=== PATIENT | male | born 1970 | race Caucasian/White ===

== ENCOUNTER 2021-02-28 10:01 | Emergency (ER) | payer MEDICARE, SELFPAY ==
[2021-02-28] VITALS (7 sets, daily range): BP systolic 111–135; BP diastolic 65–92; PULSE 51–76; RESP 10–22; TEMP 36.7–36.8; O2SAT 98–100; BMI 25.8
--- NOTE | ~2021-02-28 | XR_ITS ---
EXAMINATION: XR CHEST CLINICAL INFORMATION: Dizziness and chest pain COMPARISON: None TECHNIQUE: 2 views of the chest were obtained. FINDINGS: No significant abnormality is noted involving the heart, lungs, mediastinum, bony thorax or soft tissues. XR/XR chest 2V IMPRESSION: Unremarkable chest exam.
--- NOTE | ~2021-02-28 | CT_ITS ---
EXAMINATION: CT HEAD WITHOUT CONTRAST CLINICAL INFORMATION: Dizziness and chest pain. COMPARISON: None TECHNIQUE: Contiguous axial imaging was performed from the skull base to vertex without intravenous administration of contrast. This CT examination was performed using dose optimization techniques as appropriate, variously including the following: *Automated exposure control *Adjustment of mA and/or kV according to patient size (this includes techniques or standardized protocols for targeted exams where dose is matched to indication/reason for exam; i.e. extremities or head) *Use of iterative reconstruction technique DLP: 706 mGy-cm FINDINGS: There is no evidence of acute intracranial hemorrhage or territorial infarction. No abnormal mass effect or midline shift is seen. Black to white matter differentiation is well preserved. No extra-axial fluid collections are identified. The ventricles are normal in size. There is no abnormal attenuation within the brain parenchyma. The osseous structures and soft tissues are normal. The mastoid air cells and visualized portions of the paranasal sinuses are well aerated. CT/CT head/brain wo con IMPRESSION: No acute intracranial process seen.
--- NOTE | 2021-02-28 11:24 | ECG_ITS ---
Test Reason : CP Blood Pressure : / mmHG Vent. Rate : 063 BPM Atrial Rate : 063 BPM P-R Int : 152 ms QRS Dur : 094 ms QT Int : 394 ms P-R-T Axes : 070 043 032 degrees QTc Int : 403 ms Normal sinus rhythm Normal ECG No previous ECGs available Referred By: Juliet Kumar Electronically Signed By:Jovany Glass
--- NOTE | 2021-02-28 11:36 | PC.NURSE ---
Pt alert and oriented, skin pink and warm. Pt reports while working this morning he began having SOB and chest pain that radiates down left extremity. No c/o pain when pressure applied to chest. Pt reports B/P taken prior to arrival and was extremely elevated. B/P stable at this time. Sinus Hamzah on monitor.
[2021-02-28 11:44] LABS: MANUAL DIFF FLAG NO
[2021-02-28 11:49] LABS: Basophils Percent Auto 0.3 % (0-2); Eosinophils Absolute Auto 0.1 X10*3/uL (0.0-0.4); Eosinophils Percent Auto 1.1 % (0-4); Hematocrit 39.8 % (42-52); Hemoglobin 12.8 g/dl (14.0-18.0); Imm Gran Abs Auto 0.02 X10*3/uL (0.00-0.03); Imm Gran Pct Auto 0.3 % (0.0-0.4); Lymphocytes Absolute Auto 1.8 X10*3/uL (1.2-4.9); Lymphocytes Percent Auto 28.2 % (20-40); Mean Corpuscular HGB Conc 32.2 g/dl (31.0-36.0); Mean Platelet Volume 10.7 fL (9.4-12.4); Monocytes Absolute Auto 0.4 X10*3/uL (0.1-1.2); Monocytes Percent Auto 5.5 % (2-11); Neutrophils Absolute Auto 4.2 X10*3/uL (2.0-8.3); Neutrophils Percent Auto 64.6 % (45-73); Platelet Count 238 X10*3/uL (160-400); Red Blood Count 4.74 X10*6/uL (4.60-5.80); Red Cell Distribution Width 13.2 % (11.0-16.0); White Blood Count 6.5 X10*3/uL (4.8-10.8)
[2021-02-28 11:55] LABS: Partial Thromboplastin Time 35.4 SEC (24.1-38.0)
[2021-02-28 12:17] LABS: Alanine Aminotransferase 17 U/L (0-40); Albumin Level 4.2 g/dL (3.5-5.0); Alkaline Phosphatase 63 U/L (39-117); Anion Gap 13 (12-20); Aspartate Amino Transferase 18 U/L (5-37); B Type Natriuretic Peptide 18 pg/mL (<100); Bilirubin Total 0.3 mg/dL (0.0-1.0); Blood Urea Nitrogen 11 mg/dL (9-16); Calcium 9.1 mg/dL (8.4-10.2); Carbon Dioxide 27 mmol/L (22-29); Chloride 106 mmol/L (96-108); Creatinine Clr Calc Pharmacy 91.9; Estimated Glomerular Filt Rate > 60; Glucose Random 90 mg/dL (60-115); Magnesium 2.4 mg/dL (1.6-2.6); Sodium 142 mmol/L (135-145); Total Protein 6.6 g/dL (6.5-8.0); Troponin-I High Sensitivity < 3.5 ng/L (<3.5-35.0)
[2021-02-28] MEDS: 0.9 % Sodium Chloride 1,000 ML 999 ML IVCONT (12:21)
[2021-02-28 12:34] LABS: Glucose Urine UA NEG (NEG); Leukocyte Esterase Urine NEG (NEG); Nitrite Urine NEG (NEG); Urine Blood NEG (NEG); Urine Ketones NEG (NEG); Urine Protein NEG (NEG-TRACE)
[2021-02-28 12:35] LABS: Appearance Urine CLEAR; Color Urine YELLOW
[2021-02-28 12:39] LABS: Influenza A PCR NEGATIVE (Negative); Influenza B PCR NEGATIVE (Negative); Resp Syncy Virus RNA Qual PCR NEGATIVE (Negative); SARS COV2 PCR INHOUSE NEGATIVE (Negative)
--- NOTE | 2021-02-28 13:03 | ED_ITS ---
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 He reports when he felt this pain his coworkers that are SPLITTER TENDER/nurse's checked his blood pressure and told him it was high although patient unsure what the actual number was. He reports that the symptoms lasted only a few minutes. He reports his symptoms are completely resolved at this time. He reports he has never had this in the past. Patient denies any dizziness, blurry vision/changes in vision, chest pain, paresthesias or any other symptoms at this time. Denies any headaches, nausea/vomiting, palpitations, dyspnea on exertion, orthopnea, abdominal pain, back pain, black or bloody stools, dysuria, hematuria or lower extremity edema. 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) Pain location: substernal Pain radiation: left arm Severity: moderate Quality: aching Relieving factors: nothing Exacerbating factors: nothing Associated symptoms: other (Dizziness and blurry vision) Treatment prior to arrival: none Risk Factors Coronary artery disease risk factors: none Thoracic aortic dissection risk factors: none Related Data Allergies Allergy/AdvReac Type Severity Reaction Status Date / Time No Known Allergies Allergy Verified 02/28/21 11:23 Review of Systems Review of Systems: Constitutional : No Fever, No Chills, No Night Sweats, No Fatigue, No Malaise ENT/Mouth : No Ear Pain, No Nasal Congestion, No Sinus Pain, No sore throat, No Rhinorrhea Eyes: + blurry vision resolved, No Eye Pain, No Swelling, No Redness, No Foreign Body, No Discharge Cardiovascular : + Chest Pain resolved, No SOB, No Dyspnea on Exertion, No Or thopnea, No Palpitations Respiratory : No Cough, No Sputum, No Wheezing, No Dyspnea Gastrointestinal : No Nausea, No Vomiting, No Diarrhea, No Constipation, No abdominal Pain, No Hematochezia, No Melena Genitourinary : No Dysuria, No Urinary Frequency, No Urinary Incontinence, No Urgency, No Flank Pain Musculoskeletal : No joint pain, No Myalgias Skin : No lacerations Neuro : + dizziness resolved, No Focal weakness, No Numbness, No Paresthesias, No Loss of Consciousness, No Headache Yes all other systems are reviewed and are negative COUNTS INCLUDE 234 BEDS AT THE [facility] Past Medical History Attestation statement: The following information was validated with the patient. Medical History Chronic back pain Social History Social History Smoking Status: Never smoker Use of substances other than those prescribed or required for medical reasons: No Advance Directives: No Advance Directives Information Provided: Yes Physical Exam Vital Signs: Vital Signs: Last Vital Signs Temp 98.0 F 02/28/21 15:39 Pulse 51 02/28/21 15:39 Resp 16 02/28/21 15:39 BP 111/65 02/28/21 15:39 Pulse Ox 99 02/28/21 15:39 Body Mass Index 25.8 Vital signs have been reviewed as normal and appeared to be correct. Blood pressure normal. Heart rate normal. Respiration rate normal. Temperature normal. Oxygen saturation normal. Appearance: Alert. Oriented X3. No acute distress. Head: Normal external exam. Normocephalic. Atraumatic. Able to rotate head bilaterally. Eyes: PERRLA. EOMI. No nystagmus noted. Conjunctiva and sclera normal. Eyelids normal. Corneal reflex normal. ENT: EAC normal. TM's Normal. Hearing normal. Pharynx normal. Uvula midline. tongue midline. Moist mucous membranes. No trismus noted. No drooling noted. No muffled voice noted. No nystagmus noted. Neck: Normal inspection. Neck supple. FROM. No adenopathy. Trachea midline. Thyroid Normal. No meningeal signs. No neck mass noted. CVS: Normal heart rate and rhythm. Heart sound normal. No murmurs noted. Pulses normal throughout. Respiratory: No respiratory distress. Painless inspiration. Breath sounds normal. No wheezes/rales/rhonchi noted. Chest nontender. No accessory muscle usage noted or decreased air movement noted. Abdomen: Soft and nontender. Bowel sounds normal in all 4 quadrants. No distention noted. No organomegaly noted. No visible injury noted. Back: No CVA tenderness. Full range of motion noted. Skin: Skin warm and dry. Normal skin color. Normal skin turgor. No rashes/lesions/lacerations noted. Extremities: No lower extremity edema. Extremities exhibit normal range of motion. Extremities nontender. Able to shrug shoulders bilaterally and keep up against resistance. Neuro: Oriented X 3. No motor deficit. No sensory deficit. Reflexes normal. Moving all extremities. No focal motor deficits. Cranial nerves II-XI intact bilaterally. Facial strength normal. Normal cognition. Speech normal. Gait normal. Strength 5/5 throughout. No pronator drift. No tremor noted. No fasciculations noted. No rigidity noted. Muscle tone normal throughout. No asterixis noted. [id number] test normal. Heel to russell test normal. Tandem gait normal. Does not sway with eyes open. Romberg test negative. Rapid alternating movement upper extremity normal. Rapid alternating movement lower extremity normal. Hand drop from overhead Misses face. NIHSS score 0. Course Course Course Narrative: 16:45pm - all labs within normal limits including 2 sets of troponin. UA within normal limits no evidence of UTI. COVID/RSV/flu negative. Chest x-ray within normal limits no acute processes are noted. CT scan of brain Within normal limits no acute processes are noted. - patient has no focal neuro deficits noted. I did another neuro exam and patient's neuro exam is within normal limits. He reports he does not feel any dizziness when he stands up. He has a normal steady gait. He denies any sympt oms since he has been here in the emergency department denies any dizziness, nausea/vomiting, changes in vision/blurry vision, chest pain, shortness of breath, dyspnea on exertion, paresthesias, orthopnea any symptoms therefore at this time we will be discharging no further imaging or labs indicated. Will DC home with instructions return if any new or worsening symptoms to follow up with primary care provider. Patient understands agrees with this plan. MDM - Chest Pain MDM Narrative Medical decision making narrative: 50-year-old male presenting to the ED with complaints of midsternal chest pain radiating to his left arm with associated numbness to the left arm, dizziness and blurry vision that started approximately 945 while he was at work which has completely resolved. Per patient had an elevated blood pressure while at work. - on exam patient is alert and oriented x3. Not in any acute distress. No focal neuro deficits are noted. Patient has non disabling symptoms therefore not a tPA candidate. NIH SS score 0. Has a normal steady gait. Lungs clear to auscultation. CV RRR. Abdomen is soft and nontender. No lower extremity edema or calf tenderness is noted. - Concern for CVA vs ACS - Plan: Labs, CT scan of brain, chest x-ray, EKG, orthostatic vitals. Provide a L of IV fluids then re-evaluate. Medical Records Data Attestation: I reviewed the patient's medical records. Lab Data Attestation: I reviewed the patient's lab results. Result diagrams: 02/28/21 11:34 02/28/21 11:34 Labs: Lab Results 02/28/21 02/28/21 02/28/21 Range/Units 11:34 11:34 11:34 WBC 6.5 (4.8-10.8) X10*3/uL RBC 4.74 (4.60-5.80) X10*6/uL Hgb 12.8 L (14.0-18.0) g/dl Hct 39.8 L (42-52) % MCV 84.0 (80-98) fL MCH 27.0 (27.0-33.0) pg MCHC 32.2 (31.0-36.0) g/dl RDW 13.2 (11.0-16.0) % Plt Count 238 (160-400) X10*3/uL MPV 10.7 (9.4-12.4) fL Immature Gran % (Auto) 0.3 (0.0-0.4) % Neut % (Auto) 64.6 (45-73) % Lymph % (Auto) 28.2 (20-40) % Foard % (Auto) 5.5 (2-11) % Eos % (Auto) 1.1 (0-4) % Baso % (Auto) 0.3 (0-2) % Lymph # (Auto) 1.8 (1.2-4.9) X10*3/uL Foard # (Auto) 0.4 (0.1-1.2) X10*3/uL Eos # (Auto) 0.1 (0.0-0.4) X10*3/uL Baso # (Auto) 0.0 (0.0-0.2) X10*3/uL Abs Immat Gran (auto) 0.02 (0.00-0.03) X10*3/uL Absolute Neuts (auto) 4.2 (2.0-8.3) X10*3/uL Absolute Nucleated RBC 0.000 (0.0-0.012) X10*3/uL Nucleated RBC % (auto) 0.0 (0.0-0.2) /100WBC PT 12.0 (10.8-13.0) SEC INR 1.0 (0.9-1.1) APTT 35.4 (24.1-38.0) SEC D-Dimer < 200 NG/ML Sodium 142 (135-145) mmol/L Potassium 4.0 (3.3-5.1) mmol/L Chloride 106 (96-108) mmol/L Carbon Dioxide 27 (22-29) mmol/L Anion Gap 13 (12-20) BUN 11 (9-16) mg/dL Creatinine 0.94 (0.5-1.4) mg/dL Estim Creat Clear Calc 91.9 Estimated GFR > 60 Random Glucose 90 (60-115) mg/dL Calcium 9.1 (8.4-10.2) mg/dL Magnesium 2.4 (1.6-2.6) mg/dL Total Bilirubin 0.3 (0.0-1.0) mg/dL AST 18 (5-37) U/L ALT 17 (0-40) U/L Alkaline Phosphatase 63 (39-117) U/L Troponin I High Sens (<3.5-35.0) ng/L B-Natriuretic Peptide (<100) pg/mL Total Protein 6.6 (6.5-8.0) g/dL Albumin 4.2 (3.5-5.0) g/dL Urine Color Urine Appearance Urine pH (5.0-8.0) Ur Specific [place] (1.005-1.025) Urine Protein (NEG-TRACE) MG/DL Urine Glucose (UA) (NEG) MG/DL Urine Ketones (NEG) MG/DL Urine Blood (NEG) Urine Nitrite (NEG) Ur Leukocyte Esterase (NEG) Coronavirus (PCR) (Negative) Influenza Type A (PCR) (Negative) Influenza Type B (PCR) (Negative) RSV RNA Qual (PCR) (Negative) 02/28/21 02/28/21 02/28/21 Range/Units 11:34 11:34 12:28 WBC (4.8-10.8) X10*3/uL RBC (4.60-5.80) X10*6/uL Hgb (14.0-18.0) g/dl Hct (42-52) % MCV (80-98) fL MCH (27.0-33.0) pg MCHC (31.0-36.0) g/dl RDW (11.0-16.0) % Plt Count (160-400) X10*3/uL MPV (9.4-12.4) fL Immature Gran % (Auto) (0.0-0.4) % Neut % (Auto) (45-73) % Lymph % (Auto) (20-40) % Foard % (Auto) (2-11) % Eos % (Auto) (0-4) % Baso % (Auto) (0-2) % Lymph # (Auto) (1.2-4.9) X10*3/uL Foard # (Auto) (0.1-1.2) X10*3/uL Eos # (Auto) (0.0-0.4) X10*3/uL Baso # (Auto) (0.0-0.2) X10*3/uL Abs Immat Gran (auto) (0.00-0.03) X10*3/uL Absolute Neuts (auto) (2.0-8.3) X10*3/uL Absolute Nucleated RBC (0.0-0.012) X10*3/uL Nucleated RBC % (auto) (0.0-0.2) /100WBC PT (10.8-13.0) SEC INR (0.9-1.1) APTT (24.1-38.0) SEC D-Dimer NG/ML Sodium (135-145) mmol/L Potassium (3.3-5.1) mmol/L Chloride (96-108) mmol/L Carbon Dioxide (22-29) mmol/L Anion Gap (12-20) BUN (9-16) mg/dL Creatinine (0.5-1.4) mg/dL Estim Creat Clear Calc Estimated GFR Random Glucose (60-115) mg/dL Calcium (8.4-10.2) mg/dL Magnesium (1.6-2.6) mg/dL Total Bilirubin (0.0-1.0) mg/dL AST (5-37) U/L ALT (0-40) U/L Alkaline Phosphatase (39-117) U/L Troponin I High Sens < 3.5 (<3.5-35.0) ng/L B-Natriuretic Peptide 18 (<100) pg/mL Total Protein (6.5-8.0) g/dL Albumin (3.5-5.0) g/dL Urine Color YELLOW Urine Appearance CLEAR Urine pH 7.0 (5.0-8.0) Ur Specific [place] 1.020 (1.005-1.025) Urine Protein NEG (NEG-TRACE) MG/DL Urine Glucose (UA) NEG (NEG) MG/DL Urine Ketones NEG (NEG) MG/DL Urine Blood NEG (NEG) Urine Nitrite NEG (NEG) Ur Leukocyte Esterase NEG (NEG) Coronavirus (PCR) NEGATIVE (Negative) Influenza Type A (PCR) NEGATIVE (Negative) Influenza Type B (PCR) NEGATIVE (Negative) RSV RNA Qual (PCR) NEGATIVE (Negative) 02/28/21 Range/Units 15:37 WBC (4.8-10.8) X10*3/uL RBC (4.60-5.80) X10*6/uL Hgb (14.0-18.0) g/dl Hct (42-52) % MCV (80-98) fL MCH (27.0-33.0) pg MCHC (31.0-36.0) g/dl RDW (11.0-16.0) % Plt Count (160-400) X10*3/uL MPV (9.4-12.4) fL Immature Gran % (Auto) (0.0-0.4) % Neut % (Auto) (45-73) % Lymph % (Auto) (20-40) % Foard % (Auto) (2-11) % Eos % (Auto) (0-4) % Baso % (Auto) (0-2) % Lymph # (Auto) (1.2-4.9) X10*3/uL Foard # (Auto) (0.1-1.2) X10*3/uL Eos # (Auto) (0.0-0.4) X10*3/uL Baso # (Auto) (0.0-0.2) X10*3/uL Abs Immat Gran (auto) (0.00-0.03) X10*3/uL Absolute Neuts (auto) (2.0-8.3) X10*3/uL Absolute Nucleated RBC (0.0-0.012) X10*3/uL Nucleated RBC % (auto) (0.0-0.2) /100WBC PT (10.8-13.0) SEC INR (0.9-1.1) APTT (24.1-38.0) SEC D-Dimer NG/ML Sodium (135-145) mmol/L Potassium (3.3-5.1) mmol/L Chloride (96-108) mmol/L Carbon Dioxide (22-29) mmol/L Anion Gap (12-20) BUN (9-16) mg/dL Creatinine (0.5-1.4) mg/dL Estim Creat Clear Calc Estimated GFR Random Glucose (60-115) mg/dL Calcium (8.4-10.2) mg/dL Magnesium (1.6-2.6) mg/dL Total Bilirubin (0.0-1.0) mg/dL AST (5-37) U/L ALT (0-40) U/L Alkaline Phosphatase (39-117) U/L Troponin I High Sens < 3.5 (<3.5-35.0) ng/L B-Natriuretic Peptide (<100) pg/mL Total Protein (6.5-8.0) g/dL Albumin (3.5-5.0) g/dL Urine Color Urine Appearance Urine pH (5.0-8.0) Ur Specific [place] (1.005-1.025) Urine Protein (NEG-TRACE) MG/DL Urine Glucose (UA) (NEG) MG/DL Urine Ketones (NEG) MG/DL Urine Blood (NEG) Urine Nitrite (NEG) Ur Leukocyte Esterase (NEG) Coronavirus (PCR) (Negative) Influenza Type A (PCR) (Negative) Influenza Type B (PCR) (Negative) RSV RNA Qual (PCR) (Negative) Imaging Data Chest x-ray: Attestation: I personally reviewed and interpreted this imaging study as follows: Radiologist's impression: FINDINGS: No significant abnormality is noted involving the heart, lungs, mediastinum, bony thorax or soft tissues. XR/XR chest 2V IMPRESSION: Unremarkable chest exam. CT scan of brain without contrast: Attestation: I personally reviewed and interpreted this imaging study as follows: Radiologist's impression: FINDINGS: There is no evidence of acute intracranial hemorrhage or territorial infarction. No abnormal mass effect or midline shift is seen. Black to white matter differentiation is well preserved. No extra-axial fluid collections are identified. The ventricles are normal in size. There is no abnormal attenuation within the brain parenchyma. The osseous structures and soft tissues are normal. The mastoid air cells and visualized portions of the paranasal sinuses are well aerated. CT/CT head/brain wo con IMPRESSION: No acute intracranial process seen. ECG Data ECG #1: Attestation: I personally reviewed and interpreted this ECG as follows: ECG interpretation date: 02/28/21 ECG interpretation time: 10:10 Interpretation: Normal sinus rhythm and a trickle rate of 63 with a normal MN interval normal QRS duration normal QT/QTC interval. No acute ischemic changes are noted. No prior EKGs in system to compare to at this time. Scores Heart Score History: -1- moderately suspicious ECG: -0- normal Age: -1- >45 - <65 Risk factory: -1- 1 or 2 risk factors Troponin: -0- < or = normal limit Score: 3 Risk: 1.7% Critical Care Time Critical Care Time Critical Care Time: Yes Total Critical Care Time: 60 Attestation: I personally attest to this time spent taking care of the patient Discharge Plan Discharge Clinical Impression: Atypical chest pain Patient Disposition: Home, Self-Care Instructions: Chest Pain (ED) Referrals: Saray Jordan MD [Primary Care Provider] - 2 days Stand Alone Forms: Work/School Release Print Language: B[place]udian
[2021-02-28 13:26] LABS: D Dimer < 200 NG/ML
[2021-02-28] MEDS: Benzonatate 100 MG CAPSULE 200 MG PO (13:32)
--- NOTE | 2021-02-28 14:32 | PC.NURSE ---
MRI screening form completed with manager staffing
[2021-02-28 16:19] LABS: Troponin-I High Sensitivity < 3.5 ng/L (<3.5-35.0)
--- NOTE | 2021-02-28 17:12 | PC.NURSE ---
Stable ambulation on discharge.
== END 2021-02-28 17:10 | disposition home or self-care (01) ==
PROVIDERS: Physician Assistant Medical; Emergency Provider Emergency Medicine Emergency Medical Services; PCP Internal Medicine
DX: R07.89 Other chest pain (principal); M79.602 Pain in left arm; M54.5 Low back pain; R42 Dizziness and giddiness; Z20.822 Contact with and (suspected) exposure to COVID-19
CPT/HCPCS: 0241U; 36415; 70450; 71046; 80053; 81003; 83735; 83880; 84484; 85025; 85379; 85610; 85730; 93005; 96360; 99285

== ENCOUNTER → 2021-07-29 08:19 | Outpatient (BNVA) | payer MEDICARE, MEDICAID, SELFPAY | PROVIDERS: PCP Internal Medicine; Referring Provider Internal Medicine; Visit Provider Nurse Practitioner Family | DX: G47.33 Obstructive sleep apnea (adult) (pediatric) (principal) | CPT/HCPCS: 99202 ==

== ENCOUNTER → 2021-10-07 15:00 | Outpatient (REF) | payer MEDICARE, SELFPAY | LOC: HO.SL 15:00 | PROVIDERS: PCP Internal Medicine; Visit Provider Nurse Practitioner Family | DX: G47.33 Obstructive sleep apnea (adult) (pediatric) (principal) | CPT/HCPCS: 95806 ==

== ENCOUNTER 2022-02-03 06:54 | Day surgery (SDC) | payer MEDICARE, SELFPAY ==
--- NOTE | 2022-02-02 12:00 | HO.ANESPROP2 ---
HPI - Anesthesia Eval Consult details Narrative: 51yo M for Colonoscopy PMFSH Active Problems Active Problems: All Active Problems (Updated 12/02/21 @ 16:22 by Saray Pinto MD) Hypovitaminosis D (Acute) Neck pain (Acute) Vertigo (Acute) Frequent fractures of bone (Acute) Screening for osteoporosis (Acute) Medicare annual wellness visit, initial (Acute) Screening cholesterol level (Acute) Prostate cancer screening (Acute) Fibromyalgia (Acute) Right wrist pain (Acute) Tachycardia (Acute) DAMON (obstructive sleep apnea) (Acute) Anemia (Acute) Chronic back pain (Acute) Past Medical History Medical History Anemia Chronic back pain Fibromyalgia Hypovitaminosis D Neck pain DAMON (obstructive sleep apnea) Right wrist pain Tachycardia Vertigo Family History Family History Father Diabetes Hypotension Mother No problems noted. Surgical History Surgical History Abscess of left nipple Aftercare following right ankle joint replacement surgery History of appendectomy S/P right rotator cuff repair Social History Social History Housing: Other (mobile home) Alcohol intake: never Patient Tobacco Use Status: Never used Tobacco e-Cigarette/Vaping Use: Never Used Second Hand Smoke Exposure: No service: No Current occupational status: employed Meds Allergies Allergy/AdvReac Type Severity Reaction Status Date / Time No Known Allergies Allergy Verified 12/02/21 15:41 Home Medications Medication Instructions Recorded Confirmed Last Taken Type cholecalciferol (vitamin D3) 10 10 mcg PO DAILY 07/14/21 12/02/21 Unknown History mcg (400 unit) chewable tablet (Vitamin D3) Exam Exam Date and Time: February 02, 2022 1200 Assessment and Plan Assessment Anesthesia Assessment: Chart Reviewed
[2022-02-03 07:02] VITALS: BP 117/75; PULSE 70; RESP 18; TEMP 36.6; O2SAT 97; BMI 25.1
--- NOTE | 2022-02-03 07:11 | P.HPSUR_ITS ---
Pre-Procedural Eval Section A Date of Service: 02/03/22 Section B Chief Complaint: Screening Relevant Family History (Specify if Yes): No Relevant Social History: None Present Medications: see Short Stay Collaborative assessment Medical History: Significant History (Anemia Chronic back pain Fibromyalgia Hypovitaminosis D Neck pain DAMON (obstructive sleep apnea) Right wrist pain Tachycardia Vertigo) History of Previous Operations: Relevant previous surgery/procedure and date(s) (appendectomy) Allergies: Allergies Allergy/AdvReac Type Severity Reaction Status Date / Time No Known Allergies Allergy Verified 12/02/21 15:41 Review of Systems Sugical H&P ROS: Negative: Constitution, Cardiovascular, Respiratory, Neurological, Psychiatric, Hem-Onc, Allergic/Immunologic, Gastrointestinal, Genitourinary, Musculoskeletal, Integumentary, Endocrine and Eyes/Ear s/Nose/Throat Exam Surgical H&P Exam: Normal: HEENT, Normal: Heart, Normal: Lungs, Normal: Extremities, Normal: Abdomen, Normal: Skin and Normal: Neurological Plan Diagnosis/Plan: Unchanged I have reviewed the history and physical and performed a pertinent physical examination on my patient. No changes have occurred unless specified.
--- NOTE | 2022-02-03 07:25 | HO.ANESPROP2 ---
[facility] Active Problems Active Problems: All Active Problems (Updated 12/02/21 @ 16:22 by Saray Pinto MD) Hypovitaminosis D (Acute) Neck pain (Acute) Vertigo (Acute) Frequent fractures of bone (Acute) Screening for osteoporosis (Acute) Medicare annual wellness visit, initial (Acute) Screening cholesterol level (Acute) Prostate cancer screening (Acute) Fibromyalgia (Acute) Right wrist pain (Acute) Tachycardia (Acute) DAMON (obstructive sleep apnea) (Acute) Anemia (Acute) Chronic back pain (Acute) Past Medical History Medical History Anemia Chronic back pain Fibromyalgia Hypovitaminosis D Neck pain DAMON (obstructive sleep apnea) Right wrist pain Tachycardia Vertigo Functional capacity: independent ambulation Family History Family History Father Diabetes Hypotension Mother No problems noted. Family history of problems with anesthesia: No Surgical History Surgical History Abscess of left nipple Aftercare following right ankle joint replacement surgery History of appendectomy S/P right rotator cuff repair History of Problems with Anesthesia: No Social History Social History Housing: Other (mobile home) Alcohol intake: never Patient Tobacco Use Status: Never used Tobacco e-Cigarette/Vaping Use: Never Used Second Hand Smoke Exposure: No Are you DNR?: No Advance Directives: No Advance Directives Information Provided: Yes service: No Current occupational status: employed Meds Allergies Allergy/AdvReac Type Severity Reaction Status Date / Time No Known Allergies Allergy Verified 12/02/21 15:41 Active Medications: Current Medications Lactated Ringer's (Lr) 1,000 mls @ 100 mls/hr IVCONT .Q10H [facility] Home Medications Medication Instructions Recorded Confirmed Last Taken Type cholecalciferol (vitamin D3) 10 10 mcg PO DAILY 07/14/21 12/02/21 Unknown History mcg (400 unit) chewable tablet (Vitamin D3) Exam Exam Date and Time: February 03, 2022 0725 Height,Weight and Vital Signs: Height 5 ft 9 in Weight 77.111 kg Last Vital Signs Temp 98 F 02/03/22 07:02 Pulse 70 02/03/22 07:02 Resp 18 02/03/22 07:02 BP 117/75 02/03/22 07:02 Pulse Ox 97 02/03/22 07:02 Airway Mallampati Class: III TM Dist: >3cm Neck ROM: Full Heart: RRR Lungs: CTA Assessment and Plan Final Anesthetic Review Family History of Problems with Anesthesia: No History of Problems with Anesthesia: No ASA Class: II Final Preanesthetic Review: No Changes in Pt Med Stat, Meds/Allgs Chart Reviewed, Consent Obtained/Reviewed and Anes Risks/Benef Reviewed Patient Risk: Low Procedure Risk: Low Anesthetic Plan Anesthetic Plan: GA and MAC: Disposition: Standard PACU
[2022-02-03] MEDS: Lactated Ringers 1,000 ML 100 ML IVCONT (07:32)
--- NOTE | 2022-02-03 08:32 | P.BOP_ITS ---
Brief Operative Note Date of Service: 02/03/22 Pre-op diagnosis: colon screening Post-op diagnosis: same Procedure: see op note Surgeon: Nyasia Callahan MD Anesthesia: MAC Was an Frame Pulley Mortising Machine Operator used for this Procedure?: No Estimated blood loss (mL): 0 Condition: stable Disposition: PACU
--- NOTE | 2022-02-03 08:32 | W.PM.OPN ---
Operative Note Operative Note Date of Service: 02/03/22 Narrative: Operative Information Procedure Description: Colonoscopy COLONOSCOPY Instrument: Olympus variable stiffness pediatric scope 190L Colonoscopy Monitoring: Vital signs and clinical assessment, continuous EKG monitoring, Pulse oximetry, Carbon Dioxide monitoring and blood pressure monitoring were done throughout the procedure. Colon withdrawal time was 11 minutes. Procedure: The patient was placed in the left lateral decubitis position and pre-procedure medications were administered. After a digital rectal examination of the ano-rectum, the video colonoscope was inserted into the rectum and advanced through the colon to the cecum/TI. The colonoscope was slowly withdrawn in a retrograde panoramic fashion and the colon mucosa was carefully examined including a retroflexed view of the rectum. Findings and interventions are described below. Procedure Difficulty: moderate Findings: Terminal Ileum-superficially intubated and normal right sided retroflexion was normal Cecum:normal Ascending Colon: normal Transverse Colon -normal Descending Colon:normal Sigmoid Colon: normal Rectum: Retroflexion with moderate sized internal hemorrhoids, grade I Anorectum - normal Colon preparation: [place] Bowel Preparation Scale Right colon; 2 Transverse colon: 2 Left colon; 2 (0 = Unprepared colon segment with mucosa not seen due to solid stool that cannot be cleared. 1 = Portion of mucosa of the colon segment seen, but other areas of the colon segment not well seen due to staining, residual stool and/or opaque liquid. 2 = Minor amount of residual staining, small fragments of stool and/or opaque liquid, but mucosa of colon segment seen well. 3 = Entire mucosa of colon segment seen well with no residual staining, small fragments of stool or opaque liquid) Impression and Post Procedure Diagnosis: internal hemorrhoids Plan: High fiber diet leaflet Avoid straining at stool, epsom salts and sitz bath, anusol supps or cream Repeat Colonoscopy in 10 years or earlier if clinically indicated Above findings were reviewed with the patient and relevant handouts were provided if indicated.
[2022-02-03 09:04] VITALS: BP 110/55; PULSE 57; RESP 16; TEMP 36.1; O2SAT 97
[2022-02-03 09:19] VITALS: BP 104/68; PULSE 59; RESP 16; TEMP 36.1; O2SAT 97
--- NOTE | 2022-02-03 09:21 | PC.NURSE ---
Addendum entered by Andria Connors RN 02/03/22 09:22: applied warm blanket to abdoemen and gave apple juice instead of aung anders. hob 90 degrees. Original Note: positive bowel sounds hyperactive in rlq where patient is having pain. no rectal bleeding.
[2022-02-03 09:23] VITALS: PULSE 72; RESP 16; O2SAT 99
[2022-02-03 09:28] VITALS: BP 113/70; PULSE 60; RESP 16; O2SAT 100
--- NOTE | 2022-02-03 12:03 | HO.POSTANES ---
Post Anesthesia Evaluation Post Anesthesia Evaluation Vital Signs: Vital Signs Temp Pulse Resp BP Pulse Ox 02/03/22 09:28 60 16 113/70 100 02/03/22 09:23 72 16 99 02/03/22 09:19 97.0 F 59 16 104/68 97 02/03/22 09:04 97.0 F 57 16 110/55 L 97 02/03/22 07:02 98 F 70 18 117/75 97 Anesthesia: Monitored Mental Status: Awake Pain Control: Satisfactory Nausea/Vomiting: None Hydration: Adequate Anesthesia-Related Issues: No Anes. Related Issues
== END 2022-02-03 10:02 | disposition home or self-care (01) ==
PROVIDERS: PCP Internal Medicine; Visit Provider Internal Medicine Gastroenterology
PROC: 0DJD8ZZ Inspection of Lower Intestinal Tract, Via Natural or Artificial Opening Endoscopic (ICD-10-PCS; CPT 45378; principal; 2022-02-03 08:30)
DX: Z12.11 Encounter for screening for malignant neoplasm of colon (principal); K64.0 First degree hemorrhoids; D64.9 Anemia, unspecified; E55.9 Vitamin D deficiency, unspecified; G47.33 Obstructive sleep apnea (adult) (pediatric); Z99.89 Dependence on other enabling machines and devices; G89.29 Other chronic pain; M54.9 Dorsalgia, unspecified; M79.7 Fibromyalgia; R00.0 Tachycardia, unspecified; R42 Dizziness and giddiness; Z79.899 Other long term (current) drug therapy; Z96.1 Presence of intraocular lens
CPT/HCPCS: G0121

== ENCOUNTER → 2023-01-13 08:05 | Outpatient (REF) | payer MEDICARE, SELFPAY ==
--- NOTE | 2023-01-13 08:08 | HM_ITS ---
conclusion: 1. Patient was monitored for total period of 1 day and 23 hours 2. Baseline was normal sinus rhythm with average heart of 75 beats per minute 3. No significant pauses or bradycardia noted 4. Very rare ectopy 5. No patient reported events MTDD
--- NOTE | 2023-01-13 08:08 | CA_ITS ---
Acquisition Time: 2023-01-13 08:25:05 Total Exercise Time: 00:11:04 Test Indications: CP Medications: SEE H Protocol: DYANA Max HR: 157 BPM 94% of Pred: 166 BPM Max BP: 148/072 mmHG Max Work Load: 13.2 METS Exercise stress test using Dyana protocol total of 11 min 4 sec, METS 13.20, TAPHR up to 94% . EKG with occasional PVC's after exercise. No ischemic changes seen during exercise or in recovery. Normotensive response to exerciose. Test reviewed with Dr. Salinas. Referred By: Saray Pinto Overread By: Jenni Maravilla NP
--- NOTE | 2023-01-13 08:08 | ECG_ITS ---
Test Reason : chest pain Blood Pressure : / mmHG Vent. Rate : 053 BPM Atrial Rate : 053 BPM P-R Int : 146 ms QRS Dur : 106 ms QT Int : 428 ms P-R-T Axes : 049 026 022 degrees QTc Int : 401 ms Sinus bradycardia Normal ECG When compared to the previous EKG of No significant changes seen Referred By: Saray Pinto Electronically Signed By:NOAH GAO MD
== END ==
LOC: HO.CARD 08:05
PROVIDERS: PCP Internal Medicine; Visit Provider Internal Medicine
DX: R07.9 Chest pain, unspecified (principal); R00.2 Palpitations
CPT/HCPCS: 93005; 93017; 93225

== ENCOUNTER → 2023-01-15 15:11 | Outpatient (BNVA) | payer MEDICARE, SELFPAY | PROVIDERS: PCP Internal Medicine; Visit Provider Nurse Practitioner Family | DX: G47.33 Obstructive sleep apnea (adult) (pediatric) (principal); Z99.89 Dependence on other enabling machines and devices | CPT/HCPCS: 99212 ==

== ENCOUNTER 2023-02-24 09:29 | Outpatient (REF) | payer MEDICARE, SELFPAY ==
--- NOTE | ~2023-02-24 | FL_ITS ---
EXAMINATION: FL UPPER GI SERIES CLINICAL INFORMATION: Epigastric pain. COMPARISON: None available. TECHNIQUE: Air-contrast upper GI examination. FINDINGS: There is normal apposition of the vocal cords while saying E. There is normal elevation of the soft palate while saying candy. No nasopharyngeal reflux or tracheal aspiration was present. Patient swallowed thin and thick barium and half-inch diameter barium tablet without difficulty. There is normal esophageal motility without persistent stricture. No mucosal abnormality was identified. No gastroesophageal reflux was identified including with water siphon test. There is normal distensibility of the stomach. No mass lesion or ulceration was appreciated. There was no delay in gastric emptying. There appear to be some thickened folds within the first and second portions of duodenum which may be related to duodenitis. No definite ulceration was seen. FLUOROSCOPY TIME: 1.9 minutes DOSE AREA PRODUCT: 10.732 Gy-cm2 (bass-centimeter squared) FL/FL upper GI series IMPRESSION: Mildly thickened folds within the first and second portions of the duodenum without ulceration identified. Above finding may be related to duodenitis.
== END 2023-02-24 09:30 | disposition home or self-care (01) ==
LOC: HO.XRAY 09:29
PROVIDERS: PCP Internal Medicine; Visit Provider Internal Medicine
DX: R10.13 Epigastric pain (principal)
CPT/HCPCS: 74240

== ENCOUNTER → 2023-03-19 10:53 | Outpatient (BNVA) | payer MEDICARE, SELFPAY | PROVIDERS: PCP Internal Medicine; Visit Provider Internal Medicine Gastroenterology | DX: K29.80 Duodenitis without bleeding (principal); K75.81 Nonalcoholic steatohepatitis (NASH) | CPT/HCPCS: 99202 ==

== ENCOUNTER 2023-03-30 11:17 | Day surgery (SDC) | payer MEDICARE, SELFPAY ==
[2023-03-26 13:10] VITALS: BMI 25.1
--- NOTE | 2023-03-29 12:18 | HO.ANESPROP2 ---
HPI - Anesthesia Eval Consult details Narrative: 52yo M for Upper Endoscopy [facility] Active Problems Active Problems: All Active Problems (Updated 02/25/23 @ 10:17 by Saray Pinto MD) Duodenitis (Acute) Sinus bradycardia (Acute) Mild major depression (Acute) Epigastric pain (Acute) Palpitations (Acute) Chest pain (Acute) BPPV (benign paroxysmal positional vertigo) (Acute) Physical exam (Acute) Hypovitaminosis D (Acute) Neck pain (Acute) Vertigo (Acute) Frequent fractures of bone (Acute) Screening for osteoporosis (Acute) Medicare annual wellness visit, initial (Acute) Screening cholesterol level (Acute) Prostate cancer screening (Acute) Fibromyalgia (Acute) Right wrist pain (Acute) Tachycardia (Acute) DAMON (obstructive sleep apnea) (Acute) Anemia (Acute) Chronic back pain (Acute) Past Medical History Medical History Anemia Chronic back pain Fibromyalgia Hypovitaminosis D Neck pain DAMON (obstructive sleep apnea) Right wrist pain Tachycardia Vertigo Family History Family History Father Diabetes Hypotension Mother No problems noted. Family history of problems with anesthesia: No Surgical History Surgical History (Updated 03/19/23 @ 11:00 by GAEL Valles) Abscess of left nipple History of appendectomy History of esophagogastroduodenoscopy (EGD) Hx of colonoscopy S/P right rotator cuff repair History of Problems with Anesthesia: No Social History Social History Housing: Other (mobile home) Alcohol intake: never Patient Tobacco Use Status: Never used Tobacco e-Cigarette/Vaping Use: Never Used Second Hand Smoke Exposure: No service: No Current occupational status: employed Current occupational exposures/hazards: No Cognitive needs: No Hearing needs: No Vision needs: No Meds Allergies Allergy/AdvReac Type Severity Reaction Status Date / Time No Known Allergies Allergy Verified 03/19/23 11:00 Home Medications Medication Instructions Recorded Confirmed Last Taken Type cholecalciferol (vitamin D3) 10 10 mcg PO DAILY 01/15/23 01/15/23 Unknown History mcg (400 unit) tablet (Vitamin D3) methocarbamol 500 mg tablet 500 mg PO BEDTIME 01/15/23 01/15/23 Unknown History naproxen 500 mg tablet 500 mg PO BID PRN 01/15/23 01/15/23 Unknown History Exam Exam Date and Time: March 29, 2023 1218 Height,Weight and Vital Signs: Height 5 ft 9 in Weight 76.997 kg Narrative Narrative: Exercise Stress 01/2023 Protocol: JOSE RAMON ? Max HR: 157 BPM? 94% of? Pred: 166 BPM Max BP: 148/072 mmHG Max Work Load: 13.2 METS ? Exercise stress test using Jose Ramon protocol total of 11 min 4 sec, METS 13.20, ?TAPHR up to 94% .? EKG with occasional PVC's after exercise.? No ischemic ?changes seen during exercise or in recovery.? Normotensive response to ?exerciose.? Test reviewed with Dr. Salinas.? Holter 01/2023 conclusion: 1.? Patient was monitored for total period of 1 day and 23 hours 2.? Baseline was normal sinus rhythm with average heart of 75 beats per minute 3.? No significant pauses or bradycardia noted 4. Very rare ectopy 5.? No patient reported events EKG 01/2023 Vent. Rate : 053 BPM ? ? Atrial Rate : 053 BPM ?? P-R Int : 146 ms? QRS Dur : 106 ms ? ? QT Int : 428 ms ? ? ? P-R-T Axes : 049 026 022 degrees ?? QTc Int : 401 ms ? Sinus bradycardia Normal ECG When compared to the previous EKG of No significant changes seen Assessment and Plan Assessment Anesthesia Assessment: Chart Reviewed Final Anesthetic Review Family History of Problems with Anesthesia: No History of Problems with Anesthesia: No
[2023-03-30] MEDS: Lactated Ringers 1,000 ML 100 ML IVCONT (11:58)
[2023-03-30 12:10] VITALS: BP 137/78; PULSE 55; RESP 18; TEMP 36.7; O2SAT 96
--- NOTE | 2023-03-30 12:57 | MHC.SHP ---
Pre-Procedural Eval Section A Date of Service: 03/30/23 The patient is an INPATIENT: No The History & Physical has been completed within 30 days and I have reviewed it.: Yes Section B Chief Complaint: Duodenitis without bleeding Allergies: Allergies Allergy/AdvReac Type Severity Reaction Status Date / Time No Known Allergies Allergy Verified 03/30/23 12:11 Plan I have reviewed the history and physical and performed a pertinent physical examination on my patient. No changes have occurred unless specified. EGD for assessment of nausea and abdomina pain Time Spent With Patient Time: Total time managing care of this patient today ____ minutes.
--- NOTE | 2023-03-30 13:00 | P.CONAN_ITS ---
[facility] Active Problems Active Problems: All Active Problems (Updated 02/25/23 @ 10:17 by Saray Pinto MD) Duodenitis (Acute) Sinus bradycardia (Acute) Mild major depression (Acute) Epigastric pain (Acute) Palpitations (Acute) Chest pain (Acute) BPPV (benign paroxysmal positional vertigo) (Acute) Physical exam (Acute) Hypovitaminosis D (Acute) Neck pain (Acute) Vertigo (Acute) Frequent fractures of bone (Acute) Screening for osteoporosis (Acute) Medicare annual wellness visit, initial (Acute) Screening cholesterol level (Acute) Prostate cancer screening (Acute) Fibromyalgia (Acute) Right wrist pain (Acute) Tachycardia (Acute) DAMON (obstructive sleep apnea) (Acute) Anemia (Acute) Chronic back pain (Acute) Past Medical History Medical History Anemia Chronic back pain Fibromyalgia Hypovitaminosis D Neck pain DAMON (obstructive sleep apnea) Right wrist pain Tachycardia Vertigo Family History Family History Father Diabetes Hypotension Mother No problems noted. Family history of problems with anesthesia: No Surgical History Surgical History Abscess of left nipple History of appendectomy History of esophagogastroduodenoscopy (EGD) Hx of colonoscopy S/P right rotator cuff repair History of Problems with Anesthesia: No Social History Social History Housing: Other (mobile home) Alcohol intake: never Patient Tobacco Use Status: Never used Tobacco e-Cigarette/Vaping Use: Never Used Second Hand Smoke Exposure: No Are you DNR?: No Advance Directives: No Advance Directives Information Provided: Yes Nutrition Risks: No Nutritional Risk service: No Current occupational status: employed Current occupational exposures/hazards: No Cognitive needs: No Hearing needs: No Vision needs: No Meds Allergies Allergy/AdvReac Type Severity Reaction Status Date / Time No Known Allergies Allergy Verified 03/30/23 12:11 Active Medications: Current Medications Lactated Ringer's (Lr) 1,000 mls @ 100 mls/hr IVCONT .Q10H JEREMIAS Last Admin: 03/30/23 11:58 Dose: 100 mls/hr Ondansetron HCl (Ondansetron Hcl 4 Mg/2 Ml Vial) 4 mg IVPUSH ONCE PRN PRN Reason: Nausea and Vomiting Home Medications Medication Instructions Recorded Confirmed Last Taken Type cholecalciferol (vitamin D3) 10 10 mcg PO DAILY 01/15/23 03/30/23 Unknown History mcg (400 unit) tablet (Vitamin D3) methocarbamol 500 mg tablet 500 mg PO BEDTIME 01/15/23 03/30/23 Unknown History naproxen 500 mg tablet 500 mg PO BID PRN Pain, Moderate 01/15/23 03/30/23 03/26/23 History Exam Exam Date and Time: March 30, 2023 1300 Height,Weight and Vital Signs: Height 5 ft 9 in Weight 76.997 kg Last Vital Signs Temp 98.1 F 03/30/23 12:10 Pulse 55 03/30/23 12:10 Resp 18 03/30/23 12:10 BP 137/78 03/30/23 12:10 Pulse Ox 96 03/30/23 12:10 O2 Del Method Room Air 03/30/23 12:10 Airway Mallampati Class: II TM Dist: >3cm Neck ROM: Full Heart: rrr Lungs: clear Assessment and Plan Final Anesthetic Review Family History of Problems with Anesthesia: No History of Problems with Anesthesia: No NPO: Yes ASA Class: II Final Preanesthetic Review: No Changes in Pt Med Stat, Meds/Allgs Chart Reviewed, Consent Obtained/Reviewed and Anes Risks/Benef Reviewed Patient Risk: Intermediate Procedure Risk: Low Anesthetic Plan Anesthetic Plan: MAC: Disposition: Standard PACU
--- NOTE | 2023-03-30 13:12 | W.PM.OPN ---
Operative Note Operative Note Date of Service: 03/30/23 Narrative: Procedure Description: EGD Indication: nausea, abdo pain Anesthesia: MAC FLEXIBLE TRANSORAL UPPER GASTROINTESTINAL ENDOSCOPY UPPER ENDOSCOPY Consent: Indications for the procedure and potential complications of bleeding, perforation, reaction to medications and missed diagnosis were discussed with the patient and informed consent was obtained. Instrument: Olympus GIF H 190 J mid size upper endoscope Monitoring: Vital signs and clinical assessment, continuous EKG monitoring, Pulse oximetry, Carbon Dioxide monitoring and blood pressure monitoring were done throughout the procedure. Procedure: The patient was placed in the left lateral decubitis position and pre-procedure medications were administered and a bite block was placed. The endoscope was inserted into the mouth and advanced under direct vision to the third part of duodenum. A careful inspection was made as the upper endoscope was withdrawn including a retroflexed examination of the proximal stomach; Findings and interventions are described below. Findings: Larynx:normal Esophagus: GE junction at 37 cm, diaphragm hiatus at 40 cm, consistent with 3 cm sliding hiatal hernia, bx taken from GEJ, schatzki ring also noted with mild esophagitis-distal bx also taken Stomach: Patchy gastric erythema. Biopsies were obtained. Grade 3 flap valve on retroflexed examination of the cardia. LES was lax. Duodenum: Normal bulb and descending duodenum, bx taken Intervention: Biopsies as noted above Impression/Findings: schatzki ring esophagitis hiatal hernia gastritis PLAN: GERD precautions cont with PPI if h pylori pos then treat
[2023-03-30 13:31] VITALS: BP 93/53; PULSE 68; RESP 16; TEMP 36.4; O2SAT 97
[2023-03-30 13:50] VITALS: BP 105/74; PULSE 67; RESP 18; TEMP 36.1; O2SAT 99
== END 2023-03-30 15:15 | disposition home or self-care (01) ==
PROVIDERS: PCP Internal Medicine; Visit Provider Internal Medicine Gastroenterology
PROC: 0DJ08ZZ Inspection of Upper Intestinal Tract, Via Natural or Artificial Opening Endoscopic (ICD-10-PCS; CPT 43235; principal; 2023-03-30 13:50)
DX: K22.2 Esophageal obstruction (principal); K20.90 Esophagitis, unspecified without bleeding; K44.9 Diaphragmatic hernia without obstruction or gangrene; K29.70 Gastritis, unspecified, without bleeding
CPT/HCPCS: 43239; 88305; 88307; 88342

== ENCOUNTER → 2023-04-05 09:53 | Outpatient (BNVA) | payer MEDICARE, SELFPAY | PROVIDERS: PCP Internal Medicine; Visit Provider Internal Medicine Cardiovascular Disease | DX: R00.1 Bradycardia, unspecified (principal); R42 Dizziness and giddiness; R53.83 Other fatigue; R06.02 Shortness of breath; Z99.89 Dependence on other enabling machines and devices; Z79.899 Other long term (current) drug therapy | CPT/HCPCS: 99202 ==

== ENCOUNTER 2023-07-02 08:49 | Outpatient (AMB) | payer MEDICARE, SELFPAY ==
--- NOTE | 2023-07-02 08:54 | MHC.OFFVIS ---
Intake Vital Signs 07/02/23 08:55 Height 5 ft 9 in Weight 165 lb BMI 24.4 Blood Pressure Location Lt brachial Position Sitting Intake Visit Reasons: S/P EGD; Dr. Callahan Intake Note: Patient follow up for EGD results. Patient cc: acid reflex and a lot of coughing. Denies any other GI issues. Fitness And Wellness Manager Required: Yes Fitness And Wellness Manager Name: [place] interpeyer Accompanied by: Self / Same As Patient Allergies No Known Allergies Allergy (Verified 07/02/23 08:53) HPI S/P EGD; Dr. Callahan HPI Details 52 yr old m here for f/u RECAP: He was c/o upper abdominal pain 7/10 in severity, for 6-7 months or so he has nausea sometimes food makes sx worse he takes tyelnol prn as needed, he takes naproxen as needed 1-2 times a week, EGD 03/2023: schatzki ring esophagitis hiatal hernia gastritis bx with reflux chanes at [facility], neg for H plyori INTERIM: No major issues gerd not asbad, cut out coffee no abdominal pain no nausea, or vomiting no melena he is unsure if he is taking ppi only takes nsaid once a week for back pain EXAM: GENERAL: The patient is well developed and nontoxic. VITAL SIGNS:see workflow HEENT: Nonicteric sclerae, PERRLA, EOMI. Oropharynx clear. Moist mucous membranes. Conjunctivae appear well perfused. No thyroid mass. CHEST: Chest wall is nontender. HEART: Regular rate and rhythm without murmurs. LUNGS: Clear to auscultation bilaterally. ABDOMEN: Soft, positive bowel sounds, non tender epigastrium , no organomegaly.no flank tenderness SKIN: No rash, no excessive bruising, petechiae, or purpura. NEUROLOGIC: Cranial nerves II-XII intact without motor/sensory deficit. A/P: 1/ upper abdominal pain epigastric tenderness, has improved, EGD with reflux changes, unsure if taking PPI--neg H pylori 2/ Hiatal hernia Plan: 1/ He will check if he has PPI, if not will send a new script 2/ should take a mutlivitamin and Vit D supplement 1000 units daily 3/ f/u [address] ? [facility] Medical History Anemia Chronic back pain Fibromyalgia Hypovitaminosis D Neck pain DAMON (obstructive sleep apnea) Right wrist pain Tachycardia Vertigo Surgical History Abscess of left nipple History of appendectomy History of esophagogastroduodenoscopy (EGD) Hx of colonoscopy S/P right rotator cuff repair Family History Father Diabetes Hypotension Mother No problems noted. Social History Housing: Other (mobile home) Alcohol intake: never Patient Tobacco Use Status: Never used Tobacco e-Cigarette/Vaping Use: Never Used Second Hand Smoke Exposure: No service: No Current occupational status: employed Current occupational exposures/hazards: No Cognitive needs: No Hearing needs: No Vision needs: No Physical Exam Vital Signs: BMI result Body Mass Index 24.4 Quality Reporting (2020) Adult ([facility] 138/[birth year]) Smoking risk assessment performed?: Yes Patient Tobacco Use Status: Never used Tobacco Coding Level of Care Code Est Pt Level 3 (18075) Diagnoses
[2023-07-02 08:55] VITALS: BMI 24.4
== END 2023-07-02 09:28 | disposition home or self-care (01) ==
PROVIDERS: PCP Internal Medicine; Visit Provider Internal Medicine Gastroenterology
DX: Z71.2 Person consulting for explanation of examination or test findings (principal); R10.13 Epigastric pain
CPT/HCPCS: 99213

== ENCOUNTER → 2023-07-02 08:49 | Outpatient (BNVA) | payer MEDICARE, SELFPAY | PROVIDERS: PCP Internal Medicine; Visit Provider Internal Medicine Gastroenterology | DX: R10.10 Upper abdominal pain, unspecified (principal); R11.0 Nausea | CPT/HCPCS: 99212 ==

== ENCOUNTER 2023-08-25 14:07 | Emergency (ER) | payer MEDICARE, SELFPAY ==
--- NOTE | ~2023-08-25 | XR_ITS ---
EXAMINATION: XR CHEST CLINICAL INFORMATION: Chest pain COMPARISON: Chest x-ray 02/28/2021 TECHNIQUE: 2 views of the chest were obtained. FINDINGS: Cardiac silhouette is normal in size. The lungs are well aerated. There is no lobar consolidation. No pleural effusion or pneumothorax. Mild degenerative changes of the spine. XR/XR chest 2V IMPRESSION: No acute pulmonary pathology.
[2023-08-25 14:55] VITALS: BP 114/70; PULSE 74; RESP 18; TEMP 36.7; O2SAT 98; BMI 25.8
--- NOTE | 2023-08-25 14:57 | ED_ITS ---
HPI - General Adult General Chief complaint: Upper Respiratory Symptoms Stated complaint: Sore Throat Head Pain Etc Time Seen by Provider: 08/25/23 15:26 Source: patient Mode of arrival: ambulatory Limitations: no limitations History of Present Illness HPI narrative: 53 yo male with history of vertigo, DAMON, anemia, chronic back pain who presents to the ER for evaluation of sore throat, headaches, productive cough of yellow phlegm x2 and ringing in his ears that started yesterday. He denies any known sick contacts. He states it hurts to eat and drink but he is able to do so. He feels warm at home but has not taken his temp. No chest pain or SOB. No abdominal pain, N/V/D. complaint: URI symptoms Onset (ago): day(s) (1) Location: head, chest and back Radiation: non-radiation Severity: moderate Quality: aching Pain Consistency: intermittent Relieving factors: rest Exacerbating factors: movement Associated symptoms: cough, headaches, malaise and other (sore throat) Treatments prior to arrival: none Related Data Home Medications Medication Instructions Recorded Confirmed cholecalciferol (vitamin D3) 10 10 mcg PO DAILY 01/15/23 04/05/23 mcg (400 unit) tablet (Vitamin D3) methocarbamol 500 mg tablet 500 mg PO BEDTIME 01/15/23 04/05/23 naproxen 500 mg tablet 500 mg PO BID PRN Pain, Moderate 01/15/23 04/05/23 dexamethasone 4 mg tablet 4 mg PO 04/05/23 04/05/23 meclizine 25 mg tablet 25 mg PO TID PRN 04/05/23 04/05/23 Previous Rx's Medication Instructions Recorded CPAP #1 ea 12/02/21 pantoprazole 40 mg tablet,delayed 40 mg PO DAILY #90 tabs 03/19/23 release Allergies Allergy/AdvReac Type Severity Reaction Status Date / Time No Known Allergies Allergy Verified 07/02/23 08:53 Review of Systems 2 Review of Systems: Yes all other systems are reviewed and are negative PMFSH Past Medical History Medical History Anemia Chronic back pain Fibromyalgia Hypovitaminosis D Neck pain DAMON (obstructive sleep apnea) Right wrist pain Tachycardia Vertigo Surgical History Abscess of left nipple History of appendectomy History of esophagogastroduodenoscopy (EGD) Hx of colonoscopy S/P right rotator cuff repair Family History Family History Father Diabetes Hypotension Mother No problems noted. Social History Social History Housing: Other (mobile home) Alcohol intake: never Patient Tobacco Use Status: Never used Tobacco e-Cigarette/Vaping Use: Never Used Second Hand Smoke Exposure: No Advance Directives: No Advance Directives Information Provided: No service: No Current occupational status: employed Current occupational exposures/hazards: No Cognitive needs: No Hearing needs: No Vision needs: No Physical Exam ED Vital Signs: Vital Signs - 24 hr 08/25/23 14:55 Temperature 98.1 F Pulse Rate 74 Respiratory Rate 18 Blood Pressure 114/70 Pulse Oximetry 98 Oxygen Delivery Method Room Air BMI result Body Mass Index 25.8 Appearance: Alert. Oriented X3. No acute distress. Head: normocephalic, atraumatic. Eyes: Pupils equal, round and reactive to light. ENT: Pharynx w/ moist mucus membranes, mild posterior erythema, No tonsillar swelling or exudate. Normal TMs bilaterally. Neck: Normal inspection. Neck supple. CVS: Normal heart rate and rhythm. Pulses normal. Respiratory: No respiratory distress. Breath sounds normal. Abdomen: Soft and nontender. +BS x4 Skin: Skin warm and dry. Normal skin color. Normal skin turgor. No rashes. Extremities: No lower extremity edema. No joint swelling. No calf swelling Neuro/psych: Oriented X 3. Grossly normal, nonfocal. Normal speech and cognition. Course Course Course Narrative: This is an RME: Additional HPI, ROS, PE not included below will be deferred to primary provider. This is a [id number], with a past medical history of DAMON, presenting to the ER with a complaint of sore throat, tinnitus, cough, pleuritic chest pain since yesterday. Vital signs stable. Clear to auscultation. Plan: Labs, EKG, chest x-ray, viral swabs Medical Decision Making Medical Decision Making MDM Narrative: 53 yo male presenting with URI symptoms that started yesterday. VSS and lungs are clear throughout. EKG unremarkable. Negative lab workup including troponin. Viral studies negative. exam not c/w strep pharyngitis. most likely viral etiology we discussed results and symptomatic treatment along w/ return precautions. stable for discharge home. Differential Diagnosis Differential Diagnoses: The differential diagnosis associated with the presentation includes strep, covid, flu, rsv, other viral syndrome, bronchitis, pneumonia, no evidence of peritonsillar abcsess or retropharyngeal abscess Admission/Observation Consideration of admission/observation: Escalation of care including admission/observation considered Lab Data MDM Lab Attestation statement: I reviewed the patient's lab results. mild anemia, no leukocytosis 08/25/23 16:30 08/25/23 16:30 Labs: Lab Results 08/25/23 Range/Units 16:30 WBC 10.2 (4.8-10.8) X10*3/uL RBC 4.66 (4.60-5.80) X10*6/uL Hgb 12.8 L (14.0-18.0) g/dl Hct 39.3 L (42.0-52.0) % MCV 84.3 (80.0-98.0) fL MCH 27.5 (27.0-33.0) pg MCHC 32.6 (31.0-36.0) g/dl RDW 13.3 (11.0-16.0) % Plt Count 220 (160-400) X10*3/uL MPV 10.7 (9.4-12.4) fL Immature Gran % (Auto) 0.3 (0.0-0.4) % Neut % (Auto) 80.0 H (45-73) % Lymph % (Auto) 11.9 L (20-40) % [place] % (Auto) 6.8 (2-11) % Eos % (Auto) 0.7 (0-4) % Baso % (Auto) 0.3 (0-2) % Lymph # (Auto) 1.2 (1.2-4.9) X10*3/uL [place] # (Auto) 0.7 (0.1-1.2) X10*3/uL Eos # (Auto) 0.1 (0.0-0.4) X10*3/uL Baso # (Auto) 0.0 (0.0-0.2) X10*3/uL Abs Immat Gran (auto) 0.03 (0.00-0.03) X10*3/uL Absolute Neuts (auto) 8.2 (2.0-8.3) x10*3/uL Absolute Nucleated RBC 0.000 (0.0-0.012) X10*3/uL Nucleated RBC % (auto) 0.0 (0.0-0.2) /100WBC Sodium 141 (135-145) mmol/L Potassium 3.3 (3.3-5.1) mmol/L Chloride 106 (96-108) mmol/L Carbon Dioxide 25 (22-29) mmol/L Anion Gap 13 (12-20) BUN 12 (9-16) mg/dL Creatinine 0.90 (0.5-1.4) mg/dL Estim Creat Clear Calc 92.7 Estimated GFR > 60 Random Glucose 87 (60-115) mg/dL Calcium 9.2 (8.4-10.2) mg/dL Total Bilirubin 0.5 (0.0-1.0) mg/dL Direct Bilirubin 0.2 (0.0-0.5) mg/dL AST 18 (5-37) U/L ALT 12 (0-40) U/L Alkaline Phosphatase 65 (39-117) U/L Troponin I High Sens < 2.7 (<3.5-35.0) ng/L Total Protein 6.7 (6.5-8.0) g/dL Albumin 4.0 (3.5-5.0) g/dL Influenza Type A (PCR) NEGATIVE (Negative) Influenza Type B (PCR) NEGATIVE (Negative) RSV RNA Qual (PCR) NEGATIVE (Negative) SARS-CoV-2 RNA (RT-PCR) NEGATIVE (Negative) Independent Interpretation I performed an independent interpretation of an: EKG and Plain X-Ray Interpretation: cxr clear, no infiltrate or effusion ekg w/ sinus bradycardia, hr 59, normal VA interval, no ST segment elevations or depressions, no change from prior 02/04 Radiology Impression Discussion of test interpretation with radiology: I have reviewed the radiologist's reading. Radiologist Impression: EXAMINATION: XR CHEST CLINICAL INFORMATION: Chest pain COMPARISON: Chest x-ray 02/28/2021 TECHNIQUE: 2 views of the chest were obtained. FINDINGS: Cardiac silhouette is normal in size. The lungs are well aerated. There is no lobar consolidation. No pleural effusion or pneumothorax. Mild degenerative changes of the spine. XR/XR chest 2V IMPRESSION: No acute pulmonary pathology. Independent Historian Clinical information obtained from an independent historian. History obtained from or confirmed by: Spouse External Record Review External record reviewed: Outpatient record, Prior outpatient labs and Prior outpatient radiology Prescription Management I considered prescription management with: Antibiotic Critical Care Time Critical Care Time Critical Care Time: No Discharge Plan Discharge Clinical Impression: Acute viral syndrome Patient Disposition: Home, Self-Care Instructions: Viral Syndrome (ED) Additional Instructions: Your lab workup, chest x-ray, EKG and viral tests were all negative today. Your symptoms are most likely to a viral illness. Rest. Drink plenty of fluids. Do not go out in public while you are not feeling well. Take over the counter cold/flu medications as needed for your symptoms. Take Tylenol and/or Motrin as needed for fevers and body aches. Follow up with your doctor this week. If you develop new or worsening symptoms call 911 or come back to the ER for further evaluation. Kumar an?lisis de laboratorio, radiograf?a de t?rax, electrocardiograma y pruebas virales fueron todos negativos hoy. Lo m?s probable es que ila s?ntomas se deban a pat enfermedad viral. Descansar. Beber mucho l?quido. No salgas en p?blico mientras no te sientas mckenna. [place] medicamentos de venta comfort para el resfriado o la gripe seg?n sea necesario para ila s?ntomas. [place] Tylenol y/o Motrin seg?n sea necesario para la fiebre y los parminder corporales. Renzo un seguimiento con kumar m?dico esta semana. Si desarrolla s?ntomas nuevos o que empeoran, llame al 911 o regrese a la aiden de emergencias para pat evaluaci?n adicional. Prescriptions: No Action (DME) CPAP Device See Rx Instructions .Route Qty: 1 0RF Rx Instructions: AutoPAP 5-15 cholecalciferol (vitamin D3) [Vitamin D3] 10 mcg (400 unit) tablet 10 mcg PO DAILY naproxen 500 mg tablet 500 mg PO BID PRN (Reason: Pain, Moderate) methocarbamol 500 mg tablet 500 mg PO BEDTIME dexamethasone 4 mg tablet 4 mg PO meclizine 25 mg tablet 25 mg PO TID PRN pantoprazole 40 mg tablet,delayed release (DR/EC) 40 mg PO DAILY Qty: 90 1RF Referrals: Saray Jordan MD [Primary Care Provider] - Stand Alone Forms: Work/School Release Interventions: ED Discharge Assessment Last Done: 08/25/23 18:34 Discharge Date/Time: 08/25/23 18:34 Print Language: Albanian
--- NOTE | 2023-08-25 15:00 | ECG_ITS ---
Test Reason : CHEST PAIN Blood Pressure : / mmHG Vent. Rate : 059 BPM Atrial Rate : 059 BPM P-R Int : 144 ms QRS Dur : 098 ms QT Int : 394 ms P-R-T Axes : 047 025 027 degrees QTc Int : 390 ms Sinus bradycardia Otherwise normal ECG When compared with ECG of 13-JAN-2023 08:14, No significant change was found Referred By: Fabienne Eddy Electronically Signed By:SHERLY VILLA MD
[2023-08-25 16:38] LABS: MANUAL DIFF FLAG NO
[2023-08-25 16:42] LABS: Basophils Percent Auto 0.3 % (0-2); Eosinophils Absolute Auto 0.1 X10*3/uL (0.0-0.4); Eosinophils Percent Auto 0.7 % (0-4); Hematocrit 39.3 % (42.0-52.0); Hemoglobin 12.8 g/dl (14.0-18.0); Imm Gran Abs Auto 0.03 X10*3/uL (0.00-0.03); Imm Gran Pct Auto 0.3 % (0.0-0.4); Lymphocytes Absolute Auto 1.2 X10*3/uL (1.2-4.9); Lymphocytes Percent Auto 11.9 % (20-40); Mean Corpuscular HGB Conc 32.6 g/dl (31.0-36.0); Mean Corpuscular Hemoglobin 27.5 pg (27.0-33.0); Mean Corpuscular Volume 84.3 fL (80.0-98.0); Mean Platelet Volume 10.7 fL (9.4-12.4); Monocytes Absolute Auto 0.7 X10*3/uL (0.1-1.2); Monocytes Percent Auto 6.8 % (2-11); Neutrophils Absolute Auto 8.2 x10*3/uL (2.0-8.3); Platelet Count 220 X10*3/uL (160-400); Red Blood Count 4.66 X10*6/uL (4.60-5.80); Red Cell Distribution Width 13.3 % (11.0-16.0); White Blood Count 10.2 X10*3/uL (4.8-10.8)
[2023-08-25 16:55] LABS: Alanine Aminotransferase 12 U/L (0-40); Alkaline Phosphatase 65 U/L (39-117); Anion Gap 13 (12-20); Aspartate Amino Transferase 18 U/L (5-37); Bilirubin Direct 0.2 mg/dL (0.0-0.5); Bilirubin Total 0.5 mg/dL (0.0-1.0); Blood Urea Nitrogen 12 mg/dL (9-16); Calcium 9.2 mg/dL (8.4-10.2); Carbon Dioxide 25 mmol/L (22-29); Chloride 106 mmol/L (96-108); Creatinine Clr Calc Pharmacy 92.7; Estimated Glomerular Filt Rate > 60; Glucose Random 87 mg/dL (60-115); Potassium 3.3 mmol/L (3.3-5.1); Sodium 141 mmol/L (135-145); Total Protein 6.7 g/dL (6.5-8.0)
[2023-08-25 17:05] LABS: Troponin-I High Sensitivity < 2.7 ng/L (<3.5-35.0)
[2023-08-25 17:19] LABS: Influenza A PCR NEGATIVE (Negative); Influenza B PCR NEGATIVE (Negative); Resp Syncy Virus RNA Qual PCR NEGATIVE (Negative); SARS COV2 PCR INHOUSE NEGATIVE (Negative)
== END 2023-08-25 18:34 | disposition home or self-care (01) ==
PROVIDERS: Physician Assistant Medical; Emergency Provider Emergency Medicine; PCP Internal Medicine
DX: B34.9 Viral infection, unspecified (principal); R51.9 Headache, unspecified; J02.9 Acute pharyngitis, unspecified; R05.9 Cough, unspecified; Z20.822 Contact with and (suspected) exposure to COVID-19; Z20.828 Contact with and (suspected) exposure to other viral communicable diseases; D64.9 Anemia, unspecified; Z79.899 Other long term (current) drug therapy
CPT/HCPCS: 0241U; 71046; 80048; 80076; 84484; 85025; 93005; 99283

== ENCOUNTER 2024-01-11 08:37 | Outpatient (AMB) | payer MEDICARE, SELFPAY ==
[2024-01-11 08:38] VITALS: BP 120/82; BMI 25.1
--- NOTE | 2024-01-11 08:38 | A.OFFPC_ITS ---
Vital Signs 01/11/24 08:38 Height 5 ft 9 in Weight 170 lb BMI 25.1 BP 120/82 Blood Pressure Location Lt brachial Position Sitting Intake Visit Reasons: Annual PE Intake Note: Patient here for a physical exam Test Carrier Required: No Accompanied by: Self / Same As Patient Allergies No Known Allergies Allergy (Verified 01/11/24 08:57) Medication List - Last Reconciled 01/11/24 by Saray Pinto MD cholecalciferol (vitamin D3) (Vitamin D3) 10 mcg PO DAILY CPAP AutoPAP 5-15 meclizine 25 mg PO TID PRN methocarbamol 500 mg PO BEDTIME naproxen 500 mg PO BID PRN pantoprazole 40 mg PO DAILY Tobacco use date assessed: 01/11/24 Dental Screening Dental Screen Date: 01/11/24 Did you have a dental visit in the last 12 months?: No Did you have a dental problem in the last 6 months where you did not have access to dental care?: No Was dental information given to patient?: Patient has dentist HPI HPI Comments History of Present Illness Details This is a 53-year-old male with mild major depression that comes for his physical exam. Has mild major depression cast he is going through a divorce. Declines any counseling or treatment. Last colonoscopy was 2021 and was normal and next colonoscopy should be 2031. No chest pain or shortness of breath. [facility] Medical History Sinus bradycardia Palpitations Hypovitaminosis D Neck pain Vertigo Fibromyalgia Right wrist pain Tachycardia DAMON (obstructive sleep apnea) Anemia Chronic back pain Surgical History History of esophagogastroduodenoscopy (EGD) Hx of colonoscopy S/P right rotator cuff repair Abscess of left nipple History of appendectomy Family History Father Diabetes Hypotension Mother No problems noted. Social History Housing: Other (mobile home) Alcohol intake: never Comment: md aware decreased pain level after urinating. Patient Tobacco Use Status: Never used Tobacco e-Cigarette/Vaping Use: Never Used Second Hand Smoke Exposure: No service: No Current occupational status: employed Current occupational exposures/hazards: No Cognitive needs: No Hearing needs: No Vision needs: No Questionnaire PHQ-9 Over the last 2 weeks, how often have you been bothered by any of the following problems? 1. Little interest or pleasure in doing things: several days 2. Feeling down, depressed, or hopeless: several days 3. Trouble falling or staying asleep, or sleeping too much: several days 4. Feeling tired or having little energy: several days 5. Poor appetite or overeating: not at all 6. Feeling bad about yourself - or that you are a failure or have let yourself or your family down: not at all 7. Trouble concentrating on things, such as reading the newspaper or watching television: several days 8. Moving or speaking so slowly that other people could have noticed. Or the opposite - being so fidgety or restless that you have been moving around a lot more than usual: several days 9. Thoughts that you would be better off or of hurting yourself in some way: not at all Total score: 6 Depression Screening Interpretation: Positive Depression Screening Follow-up: Existing condition and Declines treatment Depression Screening Done: Yes 75456 - PHQ-9 Billing: Yes Source: Developed by Drs. Ramesh Headley, Analisa Devlin, John Manuel and colleagues, with an educational agustin from [employer]. Thrive Questionnaire Date Thrive assessed: 01/11/24 I am a: Patient What is your living situation today?: I have a steady place to live Within the past 12 months, did the food you bought not last and you didn't have the money to get more?: Never true Within the past 12 months, did you worry whether your food would run out before you got money to buy more?: Never true Do you have trouble paying for medicines?: No Do you have trouble getting transportation to medical appointments?: No Do you have trouble paying your heating and electricity bill?: No Do you have trouble taking care of your child, family member or friend?: No Do you have trouble with day-to-day activities such as bathing, preparing meals, shopping, managing finances, etc.?: No Are you currently unemployed and looking for a job?: No Are you interested in more education?: No Please select the resources that you would like help with: None Currently or been in a relationship where the following occur: no concerns reported THRIVE Score: 0 AUDIT C Alcohol Use Questionnaire (AUDIT-C) 1. How often do you have a drink containing alcohol?: Never Total Score: 0 ERNESTO-7 AMB Questionnaire ERNESTO-7 Date ERNESTO - 7 assessed: 01/11/24 Feeling nervous, anxious, or on edge: 1 = Several days Not being able to stop or control worryin = Not at all Worrying too much about different things: 1 = Several days Trouble relaxin = More than half the days Being so restless that it is hard to sit still: 1 = Several days Becoming easily annoyed or irritable: 0 = Not at all Feeling afraid as if something awful might happen: 1 = Several days Total ERNESTO-7 score (0-4 normal; 5-9 mild; 10-14 moderate; 15-21 severe): 6 Source: Developed by Drs. Ramesh Headley, Analisa Devlin, John Manuel and colleagues, with an educational agustin from [employer]. ERNESTO-7 Assessment Billing ERNESTO-7 Assessment Tool: ERNESTO-7 Assessment 56821 Review of Systems Const All systems reviewed & are unremarkable except as noted in HPI and below Eyes Reports no additional complaints, Denies change in vision and Denies other visual disturbances Card Denies chest pain at rest, Denies chest pain with activity, Denies edema, Denies irregular heart rhythm, Denies claudication, Denies dyspnea, Denies dyspnea on exertion, Denies orthopnea, Denies paroxysmal nocturnal dyspnea and Denies slow heart rate Resp Denies cough, Denies dyspnea and Denies dyspnea on exertion GI Denies abdominal pain, Denies change in bowel habits, Denies excessive flatus, Denies nausea and Denies vomiting Denies urinary hesitancy, Denies urinary incontinence and Denies urinary urgency Musc Denies atrophy, Denies deformity and Denies limited range of motion Physical exam (Primary Care) Vital Signs: Last Vital Signs BP 120/82 01/11/24 08:38 BMI result Body Mass Index 25.1 Tobacco/Smoking Status: Tobacco use Status Tobacco use date assessed 01/11/24 01/11/24 08:46 Patient Tobacco Use Status Never used Tobacco 01/11/24 08:46 e-Cigarette/Vaping Use Never Used 01/11/24 08:46 PHQ-9: PHQ-9 Score PHQ-9: Total score 6 01/11/24 09:03 Depression Screening Interpretation: Positive Depression Screening Follow-up: Existing condition and Declines treatment Thrive Assessment: Date of Thrive Assessment Date Thrive assessed 01/11/24 01/11/24 08:46 Currently or been in a relationship where the following occur: no concerns reported Const Orientation/consciousness: patient oriented x3 HENMT Head: Yes normal to inspection, Yes normocephalic and Yes atraumatic Ears: external ears normal Eyes General: appearance normal, both eyes and all related structures Eyelids: Yes eyelids normal Conjunctivae: conjunctivae normal Neck Neck: Yes normal visual inspection and Yes supple Resp Effort & Inspection: normal respiratory effort Auscultation: clear to auscultation bilaterally Cardio Jugular venous distension: no JVD Rate: regular rate Rhythm: regular rhythm Heart sounds: S1 normal heart sound present and S2 normal heart sound present GI Inspection: Yes normal to inspection Palpation (GI): Soft to palpation and nontender Auscultation: normal bowel sounds Skin General skin exam: no rashes or lesions noted Neuro General: patient oriented x3 and no focal motor deficits Extrem General: Yes full ROM Psych Appearance: grossly normal Assessment and Plan Assessment & Plan (1) Physical exam: Code(s): Z00.00 - Encounter for general adult medical examination without abnormal findings Plan: Repeat in a year. (2) Mild major depression: Code(s): F32.0 - Major depressive disorder, single episode, mild Plan: Declines treatment. Advise that if he needs more help he can be referred to counseling at any time. Orders: Orders Vitamin D 25-OH Total Today E55.9 - Vitamin D deficiency, unspecified Complete Blood Count Auto Diff Today D64.9 - Anemia, unspecified IRON PROFILE Today D64.9 - Anemia, unspecified Vitamin B12 and Folate Today E53.8 - Deficiency of other specified B group vitamins Lipid Panel Today Z00.00 - Encounter for general adult medical examination without abnormal findings Comprehensive [place]. Panel Fast Today Z00.00 - Encounter for general adult medical examination without abnormal findings Medications: Changed From methocarbamol 500 mg PO BEDTIME To methocarbamol 500 mg PO BEDTIME 30 tabs 0RF 30 days Coding Level of Care Code Est Pt Prev Care 40-64y(15985) Diagnoses Physical exam Z00.00 Mild major depression F32.0 Additional Codes ERNESTO-7 Assessment Billing - ERNESTO-7 Assessment Tool: ERNESTO-7 Assessment 46068 ([id number]) Time Spent (min) 31
== END 2024-01-11 09:10 | disposition home or self-care (01) ==
PROVIDERS: Visit Provider Internal Medicine
DX: Z00.00 Encounter for general adult medical examination without abnormal findings (principal); F32.0 Major depressive disorder, single episode, mild
CPT/HCPCS: 99396

== ENCOUNTER → 2024-12-26 14:57 | Outpatient (BNVA) | payer MEDICARE, SELFPAY | PROVIDERS: PCP Internal Medicine; Visit Provider Internal Medicine | DX: G47.33 Obstructive sleep apnea (adult) (pediatric) (principal); F32.0 Major depressive disorder, single episode, mild; E55.9 Vitamin D deficiency, unspecified; I10 Essential (primary) hypertension | CPT/HCPCS: 90471; 96127; 99212 ==

== ENCOUNTER → 2024-12-26 15:31 | Outpatient (AMB) | payer MEDICARE, SELFPAY ==
[2024-12-26 14:58] VITALS: BP 110/70; BMI 25.1
--- NOTE | 2024-12-26 14:58 | MHC.PC.OV ---
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 Wrapping Machine Operator Name: Saray Pinto MD Information Interpreted: non-clinical & clinical Accompanied by: lise Allergies No Known Allergies Allergy (Verified 12/26/24 15:20) Medication List - Last Reconciled 12/26/24 by Saray Pinto MD cholecalciferol (vitamin D3) (Vitamin D3) 10 mcg PO DAILY CPAP AutoPAP 5-15 losartan 25 mg PO DAILY 90 days methocarbamol 500 mg PO BEDTIME 30 days Tobacco use date assessed: 12/26/24 Dental Screening Dental Screen Date: 12/26/24 Did you have a dental visit in the last 12 months?: No Did you have a dental problem in the last 6 months where you did not have access to dental care?: No Was dental information given to patient?: Patient has dentist HPI HPI Comments History of Present Illness Details The patient is a 54-year-old male presenting with hypertension and issues related to his CPAP machine. The patient reported that his blood pressure readings have fluctuated, with recent measurements reaching 140/90 mmHg, but they are sometimes lower, around 110/70 mmHg. He noted feeling unusually tired and fatigued, attributing it partly to disturbances related to his CPAP machine, which has not been functioning appropriately. The patient indicated that Dr. Willis had previously referred him for an examination, but he did not receive follow-up instructions or adjustments concerning his CPAP machine. He also mentioned using pseudoephedrine nasal medication to manage nasal congestion because of breathing difficulties with the CPAP mask, although he experiences concern over palpitations associated with this medication. Concerning allergic rhinitis, he reported taking vitamin D, losartan, and metocarbamol as necessary for muscle aches. Additionally, he discussed prior discomfort and difficulty sleeping because of neck pain, which subsided after receiving an injection, although he experienced discomfort and difficulty with arm movement initially. He has an upcoming appointment regarding a cervical issue, which previously impacted his sleep and physical activities. [facility] Medical History (Updated 12/26/24 @ 19:59 by Saray Pinto MD) Sinus bradycardia Palpitations Hypovitaminosis D Neck pain Vertigo Fibromyalgia Right wrist pain Tachycardia DAMON (obstructive sleep apnea) Anemia Chronic back pain Surgical History History of esophagogastroduodenoscopy (EGD) Hx of colonoscopy S/P right rotator cuff repair Abscess of left nipple History of appendectomy Family History Father Diabetes Hypotension Mother No problems noted. Social History Housing: Other (mobile home) Alcohol intake: never Comment: md aware decreased pain level after urinating. Patient Tobacco Use Status: Never used Tobacco e-Cigarette/Vaping Use: Never Used Second Hand Smoke Exposure: No service: No Current occupational status: employed Current occupational exposures/hazards: No Cognitive needs: No Hearing needs: No Vision needs: No Questionnaire PHQ-9 Over the last 2 weeks, how often have you been bothered by any of the following problems? 1. Little interest or pleasure in doing things: several days 2. Feeling down, depressed, or hopeless: several days 3. Trouble falling or staying asleep, or sleeping too much: several days 4. Feeling tired or having little energy: several days 5. Poor appetite or overeating: several days 6. Feeling bad about yourself - or that you are a failure or have let yourself or your family down: not at all 7. Trouble concentrating on things, such as reading the newspaper or watching television: not at all 8. Moving or speaking so slowly that other people could have noticed. Or the opposite - being so fidgety or restless that you have been moving around a lot more than usual: not at all 9. Thoughts that you would be better off or of hurting yourself in some way: not at all Total score: 5 Depression Screening Interpretation: Positive Depression Screening Follow-up: Existing condition and Follow-up Visit Requested Depression Screening Done: Yes 80845 - PHQ-9 Billing: Yes Source: Developed by Drs. Ramesh Headley, Analisa Devlin, John Manuel and colleagues, with an educational agustin from [employer]. Thrive Questionnaire Date Thrive assessed: 12/26/24 I am a: Patient What is your living situation today?: I have a steady place to live Within the past 12 months, did the food you bought not last and you didn't have the money to get more?: Never true Within the past 12 months, did you worry whether your food would run out before you got money to buy more?: Never true Do you have trouble paying for medicines?: No Do you have trouble getting transportation to medical appointments?: No Do you have trouble paying your heating and electricity bill?: No Do you have trouble taking care of your child, family member or friend?: No Do you have trouble with day-to-day activities such as bathing, preparing meals, shopping, managing finances, etc.?: No Are you currently unemployed and looking for a job?: No Are you interested in more education?: No Please select the resources that you would like help with: None Currently or been in a relationship where the following occur: No concerns reported THRIVE Score: 0 AUDIT C Alcohol Use Questionnaire (AUDIT-C) 1. How often do you have a drink containing alcohol?: Never Total Score: 0 Score Reviewed/Action Taken: No ERNESTO-7 AMB Questionnaire ERNESTO-7 Date ERNESTO - 7 assessed: 12/26/24 Feeling nervous, anxious, or on edge: 1 = Several days Not being able to stop or control worryin = Not at all Worrying too much about different things: 1 = Several days Trouble relaxin = Several days Being so restless that it is hard to sit still: 0 = Not at all Becoming easily annoyed or irritable: 1 = Several days Feeling afraid as if something awful might happen: 0 = Not at all Total ERNESTO-7 score (0-4 normal; 5-9 mild; 10-14 moderate; 15-21 severe): 4 Source: Developed by Drs. Ramesh Headley, Analisa Devlin, John Manuel and colleagues, with an educational agustin from [employer]. ERNESTO-7 Assessment Billing ERNESTO-7 Assessment Tool: ERNESTO-7 Assessment 50285 Review of Systems Const All systems reviewed & are unremarkable except as noted in HPI and below Card Denies chest pain at rest, Denies chest pain with activity, Denies edema, Denies irregular heart rhythm, Denies claudication, Denies dyspnea, Denies dyspnea on exertion, Denies orthopnea, Denies paroxysmal nocturnal dyspnea and Denies slow heart rate Resp Denies cough, Denies dyspnea and Denies dyspnea on exertion GI Denies abdominal pain, Denies change in bowel habits, Denies excessive flatus, Denies nausea and Denies vomiting Physical exam (Primary Care) Vital Signs: Last Vital Signs BP 110/70 12/26/24 14:58 BMI result Body Mass Index 25.1 Tobacco/Smoking Status: Tobacco use Status Tobacco use date assessed 12/26/24 12/26/24 15:05 Patient Tobacco Use Status Never used Tobacco 12/26/24 15:05 e-Cigarette/Vaping Use Never Used 12/26/24 15:05 PHQ-9: PHQ-9 Score PHQ-9: Total score 5 12/26/24 15:56 Depression Screening Interpretation: Positive Depression Screening Follow-up: Existing condition and Follow-up Visit Requested Thrive Assessment: Date of Thrive Assessment Date Thrive assessed 12/26/24 12/26/24 15:05 Currently or been in a relationship where the following occur: No concerns reported Resp Effort & Inspection: normal respiratory effort Auscultation: clear to auscultation bilaterally Cardio Jugular venous distension: no JVD Rate: regular rate Rhythm: regular rhythm Heart sounds: S1 normal heart sound present and S2 normal heart sound present Extrem General: Yes full ROM Office Procedures Flu Questionnaire Does the patient have a severe egg allergy?: No Immunizations Fluarix Triv 1013-2005 (PF) 45 mcg (15 mcg x 3)/0.5 mL IM syringe Performing Provider: Saray Pinto MD [facility] [place] [facility] Documented (not given) by: GAEL Aguilar on 12/26/24 15:57 Reason Not Given: Patient Refused Coding Level of Care Code Est Pt Level 4 (47044) Complex EM visit Add On G2211 Diagnoses DAMON on CPAP G47.33 Mild major depression F32.0 Hypovitaminosis D E55.9 Essential hypertension I10 Additional Codes ERNESTO-7 Assessment Billing - ERNESTO-7 Assessment Tool: ERNESTO-7 Assessment 70303 ([id number]) PHQ-9 - 55921 - PHQ-9 Billing: Yes ([id number]) Time Spent (min) 23 Assessment & Plan Assessment & Plan (1) DAMON on CPAP: Code(s): G47.33 - Obstructive sleep apnea (adult) (pediatric) Category: Medical (2) Mild major depression: Code(s): F32.0 - Major depressive disorder, single episode, mild Category: Medical (3) Hypovitaminosis D: Code(s): E55.9 - Vitamin D deficiency, unspecified Category: Medical (4) Essential hypertension: Code(s): I10 - Essential (primary) hypertension Category: Medical Plan - Monitor blood pressure at different times during the day, recommending to record at least three readings per week. - Conduct sleep study referral to assess CPAP machine settings and adjust as needed. - Consider alternative nasal decongestants to pseudoephedrine to avoid palpitations, potentially utilizing loratadine or cetirizine for symptomatic relief of allergic rhinitis. - Continue with hypertension management, including losartan, and assess the need for daily medication adjustments based on blood pressure readings. - Follow up with cervical skin specialist, address ongoing neck discomfort, and evaluate current treatment efficacy. Patient was informed and verbally consented to the use of an ambient scribe for clinic note documentation during this visit. I discussed with the patient the importance of maintaining consistent blood pressure monitoring and following prescribed antihypertensive medication. We addressed concerns regarding palpitations linked with the use of pseudoephedrine and explored alternative options for managing nasal congestion. We agreed on the necessity of conducting a sleep study to optimize CPAP machine effectiveness. The patient was informed about the importance of returning for a follow-up after further evaluation of his sleep apnea and hypertensive issues, and I encouraged ongoing communication regarding any changes in symptoms or medication side effects. Orders: Orders Vitamin B12 and Folate Today E53.8 - Deficiency of other specified B group vitamins Vitamin D 25-OH Total Today E55.9 - Vitamin D deficiency, unspecified Complete Blood Count Auto Diff Today D64.9 - Anemia, unspecified IRON PROFILE Today D64.9 - Anemia, unspecified Lipid Panel Today E78.5 - Hyperlipidemia, unspecified Comprehensive [place]. Panel Fast Today K29.80 - Duodenitis without bleeding Influenza 6537-2236 Immunization Today Z23 - Encounter for immunization Referrals Neurology Referral G47.33 - Obstructive sleep apnea (adult) (pediatric) Medications: New cetirizine (All Day Allergy (cetirizine)) 10 mg PO DAILY PRN 90 tabs 1RF allergy symptoms 90 days Patient Instructions: - Continue taking prescribed medications, including losartan, and monitor blood pressure frequently. - Use a diary to document blood pressure readings and bring it to the next appointment. - Avoid pseudoephedrine if experiencing palpitations; try alternative allergy medications like loratadine or cetirizine. - Wear the CPAP machine regularly and report any issues. - Follow up with the cervical skin specialist as scheduled and report any changes in neck symptoms. - Maintain good sleep hygiene practices and limit activities impacting fatigue until further evaluation.
== END | disposition home or self-care (01) ==
PROVIDERS: PCP Internal Medicine; Visit Provider Internal Medicine
DX: G47.33 Obstructive sleep apnea (adult) (pediatric) (principal); F32.0 Major depressive disorder, single episode, mild; E55.9 Vitamin D deficiency, unspecified; I10 Essential (primary) hypertension; Z23 Encounter for immunization

== ENCOUNTER 2025-08-13 10:53 | Outpatient (REF) | payer MEDICARE, SELFPAY ==
[2025-08-13 12:35] LABS: MANUAL DIFF FLAG NO
[2025-08-13 13:28] LABS: Hematocrit 35.2 % (42.0-52.0); Hemoglobin 12.0 g/dl (14.0-18.0); Imm Gran Abs Auto 0.02 X10*3/uL (0.00-0.03); Imm Gran Pct Auto 0.3 % (0.0-0.4); Lymphocytes Absolute Auto 2.2 X10*3/uL (1.2-4.9); Mean Corpuscular HGB Conc 34.1 g/dl (31.0-36.0); Mean Corpuscular Hemoglobin 27.9 pg (27.0-33.0); Mean Corpuscular Volume 81.9 fL (80.0-98.0); NRBC Abs Auto 0.000 X10*3/uL (0.0-0.012); NRBC Pct Auto 0.0 /100WBC (0.0-0.2); Platelet Count 276 X10*3/uL (160-400); Red Blood Count 4.30 X10*6/uL (4.60-5.80); White Blood Count 7.6 X10*3/uL (4.8-10.8)
[2025-08-13 14:39] LABS: Alanine Aminotransferase 21 U/L (0-40); Albumin Level 4.2 g/dL (3.5-5.0); Alkaline Phosphatase 64 U/L (39-117); Anion Gap 10 (12-20); Aspartate Amino Transferase 30 U/L (5-37); Blood Urea Nitrogen 18 mg/dL (9-16); Calcium 8.6 mg/dL (8.4-10.2); Carbon Dioxide 27 mmol/L (22-29); Chloride 111 mmol/L (96-108); Cholesterol 212 mg/dL (<200); Estimated Glomerular Filt Rate > 60; HDL Cholesterol 45 mg/dL (>40); Iron 82 mcg/dL (45-160); Percent Iron Saturation 33 % (15-50); Potassium 3.8 mmol/L (3.3-5.1); Sodium 144 mmol/L (135-145); Total Iron Binding Capacity 252 mcg/dL (228-428); Total Protein 6.7 g/dL (6.5-8.0); Triglycerides 137 mg/dL (<150); Unsaturated Iron Binding 170 ug/dL
[2025-08-13 15:00] LABS: Folate 11.3 ng/mL (> or = 4.0); Vitamin B12 420 pg/mL (200-900)
[2025-08-17 21:24] LABS: Testosterone, Free 61.7 pg/mL (35.0-155.0)
== END 2025-08-13 10:54 | disposition home or self-care (01) ==
LOC: HO.LAB 10:53
PROVIDERS: PCP Internal Medicine; Visit Provider Internal Medicine
DX: E53.8 Deficiency of other specified B group vitamins (principal); D64.9 Anemia, unspecified; E55.9 Vitamin D deficiency, unspecified; N52.9 Male erectile dysfunction, unspecified; E78.5 Hyperlipidemia, unspecified; K29.80 Duodenitis without bleeding; I10 Essential (primary) hypertension; R00.0 Tachycardia, unspecified; R42 Dizziness and giddiness; Z79.899 Other long term (current) drug therapy
CPT/HCPCS: 36415; 80053; 80061; 82306; 82607; 82746; 83540; 84402; 84403; 85025; 99212

== ENCOUNTER 2025-08-13 10:53 | Outpatient (AMB) | payer MEDICARE, SELFPAY ==
[2025-08-13 11:16] VITALS: BP 104/68; PULSE 74; RESP 18; TEMP 36.3; O2SAT 97; BMI 26.0
--- NOTE | 2025-08-13 11:16 | A.OFFPC_ITS ---
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 Accompanied by: Self / Same As Patient Allergies No Known Allergies Allergy (Verified 08/13/25 11:29) Medication List - Last Reconciled 08/13/25 by Saray Pinto MD cetirizine (All Day Allergy (cetirizine)) 10 mg PO DAILY PRN 90 days cholecalciferol (vitamin D3) (Vitamin D3) 10 mcg PO DAILY CPAP AutoPAP 5-15 losartan 25 mg PO DAILY 90 days methocarbamol 500 mg PO BEDTIME 30 days Tobacco use date assessed: 08/13/25 Dental Screening Dental Screen Date: 08/13/25 Did you have a dental visit in the last 12 months?: No Did you have a dental problem in the last 6 months where you did not have access to dental care?: No Was dental information given to patient?: No HPI HPI Comments History of Present Illness Details The patient is a 55-year-old male presenting for hypertension management and evaluation of dizziness. The patient has a history of hypertension, managed with losartan 25 mg, which he takes regularly. He monitors his blood pressure at home, noting occasional low readings in the morning, such as 119/60 mmHg, but generally maintains a stable level around 130/80 mmHg. He experiences dizziness, particularly when standing up quickly, which has been attributed to vasovagal reactions. He also complains of tachycardia that happens at rest. Also shortness of breath at rest. The patient also reports erectile dysfunction and has inquired about potential treatments. A testosterone level check has been suggested to evaluate for possible deficiency. [facility] Medical History (Updated 08/13/25 @ 11:41 by Saray Pinto MD) Sinus bradycardia Palpitations Hypovitaminosis D Neck pain Vertigo Fibromyalgia Right wrist pain Tachycardia DAMON (obstructive sleep apnea) Anemia Chronic back pain Surgical History History of esophagogastroduodenoscopy (EGD) Hx of colonoscopy S/P right rotator cuff repair Abscess of left nipple History of appendectomy Family History Father Diabetes Hypotension Mother No problems noted. Social History Housing: Other (mobile home) Alcohol intake: never Comment: md aware decreased pain level after urinating. Patient Tobacco Use Status: Never used Tobacco e-Cigarette/Vaping Use: Never Used Second Hand Smoke Exposure: No service: No Current occupational status: employed Current occupational exposures/hazards: No Cognitive needs: No Hearing needs: No Vision needs: No Questionnaire Thrive Questionnaire Date Thrive assessed: 12/26/24 ERNESTO-7 AMB Questionnaire ERNESTO-7 Date ERNESTO - 7 assessed: 12/26/24 Source: Developed by Drs. Ramesh Headley, Analisa Devlin, John Manuel and colleagues, with an educational agustin from [employer]. Review of Systems Const All systems reviewed & are unremarkable except as noted in HPI and below Card Denies chest pain at rest, Denies chest pain with activity, Denies edema, Denies irregular heart rhythm, Denies claudication, Denies dyspnea, Denies dyspnea on exertion, Denies orthopnea, Denies paroxysmal nocturnal dyspnea and Denies slow heart rate Resp Denies cough, Denies dyspnea and Denies dyspnea on exertion GI Denies abdominal pain, Denies change in bowel habits, Denies excessive flatus, Denies nausea and Denies vomiting Denies urinary hesitancy, Denies urinary incontinence and Denies urinary urgency Musc Denies atrophy, Denies deformity and Denies limited range of motion Physical exam (Primary Care) Vital Signs: Last Vital Signs Temp 97.3 F 08/13/25 11:16 Resp 18 08/13/25 11:16 Oxygen Delivery Method Room Air 08/13/25 11:16 BMI result Body Mass Index 26.0 Tobacco/Smoking Status: Tobacco use Status Tobacco use date assessed 08/13/25 08/13/25 11:22 Patient Tobacco Use Status Never used Tobacco 08/13/25 11:22 e-Cigarette/Vaping Use Never Used 08/13/25 11:22 Thrive Assessment: Date of Thrive Assessment Date Thrive assessed 12/26/24 08/13/25 11:22 Resp Effort & Inspection: normal respiratory effort Auscultation: clear to auscultation bilaterally Cardio Jugular venous distension: no JVD Rate: regular rate Rhythm: regular rhythm Heart sounds: Murmur heart sound present Extrem General: Yes full ROM Coding Level of Care Code Est Pt Level 4 (01371) Complex EM visit Add On G2211 Diagnoses Essential hypertension I10 Tachycardia R00.0 Vertigo R42 Erectile dysfunction N52.9 Hypovitaminosis D E55.9 Time Spent (min) 21 Assessment & Plan Assessment & Plan (1) Essential hypertension: Code(s): I10 - Essential (primary) hypertension Category: Medical (2) Tachycardia: Code(s): R00.0 - Tachycardia, unspecified Category: Medical (3) Vertigo: Code(s): R42 - Dizziness and giddiness Category: Medical (4) Erectile dysfunction: Code(s): N52.9 - Male erectile dysfunction, unspecified Category: Medical (5) Hypovitaminosis D: Code(s): E55.9 - Vitamin D deficiency, unspecified Category: Medical Plan Plan Patient was informed and verbally consented to the use of an ambient scribe for clinic note documentation during this visit. 1. Essential Hypertension The patient's hypertension is currently managed with losartan 25 mg, which he takes regularly. He monitors his blood pressure at home, noting occasional low readings in the morning, such as 119/60 mmHg, but generally maintains a stable level around 130/80 mmHg. 2. Dizziness The patient experiences dizziness, particularly when standing up quickly, which has been attributed to vasovagal reactions. A Holter monitor and an echocardiog kain have been recommended to evaluate his heart rhythm and function. 3. Erectile Dysfunction The patient reports erectile dysfunction and has inquired about potential treatments. A testosterone level check has been suggested to evaluate for possible deficiency. Orders: Orders Vitamin B12 and Folate Today E53.8 - Deficiency of other specified B group vitamins Vitamin D 25-OH Total Today E55.9 - Vitamin D deficiency, unspecified CA echo transthoracic complete Today R01.1 - Cardiac murmur, unspecified Testosterone, Free/Total Today N52.9 - Male erectile dysfunction, unspecified ECG holter monitor 48 hour Today R00.0 - Tachycardia, unspecified Medications: Changed From cholecalciferol (vitamin D3) (Vitamin D3) 10 mcg PO DAILY To cholecalciferol (vitamin D3) (Vitamin D3) 10 mcg PO DAILY 90 tabs 1RF 90 days Refilled cetirizine (All Day Allergy (cetirizine)) 10 mg PO DAILY PRN 90 tabs 1RF allergy symptoms 90 days methocarbamol 500 mg PO BEDTIME 30 tabs 0RF 30 days losartan 25 mg PO DAILY 90 tabs 1RF 90 days
--- OUTSIDE RECORDS SUMMARY | 2025-08-13 12:24 | XMS_ITS | Clinical Summary ---
Author Organization [facility] Address [address] [place] [address] Care Team Providers Care Coroner/Medical Examiner Name Role Phone Unavailable Primary Care Provider Unavailabl e Source Comments PLEASE NOTE, if this patient is a minor, it may be UNLAWFUL to discuss sensitive information that is contained in these records (such as FAMILY PLANNING, MENTAL HEALTH or SUBSTANCE ABUSE) with the minor patient's parent or other person without the patient's specific authorization.[facility] Allergies No known active allergies Medications ibuprofen (ADVIL,MOTRIN) 600 mg tablet Take 1 Tab by mouth 4 (four) times daily as needed for pain. 30 Tab 1 07/18/2013 Active calcium carbonate-vitam in D3 (OYSTERCAL-D) 500 mg(1,250mg) -400 unit tabletIndicatio ns:Vitamin D deficiency disease Take 1 Tab by mouth 2 (two) times daily. 60 Tab 6 08/16/2014 Active DULoxetine (CYMBALTA) [address] capsuleIndicati ons:Depression Take 1 Cap by mouth once daily. Swallow whole, do not crush or chew. 04/04/2015 Active oxCARBAZEPINE (TRILEPTAL) 150 mg tablet Take 1 Tab by mouth 2 (two) times daily. 09/10/2015 Active ferrous sulfate 325 mg (65 mg iron) tablet TK 1 T PO QD WITH FOOD AND A GLASS OF ORANGE JUICE 3 05/14/2016 Active LYRICA 75 mg capsule TK ONE C PO TID 1 06/03/2016 Active ARIPiprazole (ABILIFY) 5 mg tablet TK 1 T PO QAM 3 05/12/2016 Activ e traZODone (DESYREL) 50 mg tablet TK 1 TO 2 TS PO QHS 3 05/12/[address] tabletIndicatio ns:Palpitations Take 1 Tab by mouth once daily. 30 Tab 11 06/08/2016 Active azithromycin (ZITHROMAX) 250 mg tabletIndicatio ns:Acute non-recurrent maxillary sinusitis Take two tabs by mouth on day one, followed by 1 tab per day by mouth for four days. 6 Tab 0 11/10/2016 Active azithromycin (ZITHROMAX) 250 mg tablet TAKE 2 TABLETS BY MOUTH TODAY, THEN TAKE 1 TABLET DAILY FOR 4 DAYS 0 09/04/2016 Active FLULAVAL QUAD 7974-2946 60 mcg (15 mcg x 4)/0.5 mL susp ADM 0.5ML IM UTD 0 08/19/2016 Active acetaminophen (TYLENOL) 500 mg tablet Take 1 Tab by mouth every 6 (six) hours as needed for pain 30 Tab 08/11/2017 Active VITAMIN D-3 400 unit tablet TK 1 T PO BID 30 Tab 1 08/20/2017 Active Active Problems Problem Noted Date Diagnosed Date Fibromyalgia 05/09/2015 DAMON (obstructive sleep apnea) 07/09/2014 Seasonal allergies 07/09/2014 Pre-diabetes 07/09/2014 Overview (07/09/2014): HbA1c 5.9 07/31/10 Back pain 03/27/2014 Overview (07/04/2015): [facility] pain management 06/26/15 Injection Neck pain 03/27/2014 Chronic right shoulder pain 12/15/2013 Chronic low back pain 08/23/2013 Neuropathy 08/23/2013 GERD (gastroesophageal reflux disease) 3 Depression 08/23/2013 Anxiety 08/23/2013 Resolved Problems Problem Noted Date Diagnosed Date Resolved Date Dizziness 12/21/2014 12/09/2015 H/O vitamin D deficiency 07/09/2014 Other penile anomalies 01/16/201412/09 Lump 01/11/2014 12/09/2015 Preventive measure 08/23/2013 6 H pylori ulcer 12/09/2015 Overview (08/18/2013): H PYLORI @ age 25 GERDS Abnormal stress test 016 Overview (08/18/2013): Attempted to send to cardio pt did not have ins. Assessment & Plan (07/09/2014 3:05 PM EDT): Myocardial perfusion imaging 10/01/10 neg test. EF 62%. Sinus malka on ekg. Abnormal sleep studay for sleep apnea & cnadidate for CPap per Cardiology note 10/21/10. Immunizations Immunization Administration Dates Next Due Flu, Preservative Free 07/16/2017 INFLUENZA, SEASONAL, INJECTABLE 09/10/2015,08/23,07/30/2010,08/07/2009 TDAP 09/10/2015 Family History Medical History Relation Name Comments Diabetes Father Heart Problems Father Depression Mother Heart Problems Mother Diabetes Paternal Grandfather Heart Problems Paternal Grandfather Relation Name Status Comments Father Mother Paternal Grandfather Social History Tobacco Use Types Packs/Day Years Used Date Smoking Tobacco: Never Smokeless Tobacco: Never Alcohol Use Standard Drinks/Week Comments No 0 (1 standard drink = 0.6 oz pur e alcohol) Social Connections Answer Date Recorded Social Connections and Isolation 0 07/08/2019 Financial Resource Strain Answer Date R ecorded Financial Resource Strain 0 2018 Stress Answer Date Recorded Stress 0 07/08/2019 Physical Activity Answer Date Recorded Physical Activity 0 07/08/2019 Food Insecurity Answer Date Recorded Food 0 07/08/2019 Transportation Needs Answer Date Record ed Transportation 0 07/08/2019 Housing Stability Answer Date Recorded Housing 0 07/08/2019 Safety and Environment Answer Date Phillip rded Safety 0 07/08/2019 Utilities Answer Date Recorded Utilities 0 07/08/2019 Employment Answer Date Recorded Employment 0 07/08/2019 Sex and Gender Information Value Date Recorded Sex Assigned at Male 08/20/2017 6:06 AM PDT Legal Sex Male 11:36 AM PDT Gender Identity Male 08/20/2017 6:06 AM PDT Sexual Orientation Straight 08/20/2017 6: 06 AM PDT Last Filed Vital Signs Vital Sign Reading Time Taken Comments Blood Pressure 102/70 08/20/2017 8:55 AM EDT Pulse 72 08/20/2017 8:55 AM EDT Temperature 37.1 C (98.7 F) 08/20/2017 8:55 AM EDT Respiratory Rate 18 08/20/2017 8:55 AM EDT Oxygen Saturation 99% 08/11/2017 10: 58 AM EDT Inhaled Oxygen Concentration - - Weight 75.3 kg (165 lb 14.4 oz) 08/20/2017 8:55 AM EDT Height 175 cm (5' 8.9 ) 08/20/2017 8:55 AM EDT Body Mass Index 24.57 08/20/2017 8:55 AM EDT Plan of Treatment Not on file [place]
--- OUTSIDE RECORDS SUMMARY | 2025-08-13 12:24 | XMS_ITS | Clinical Summary ---
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 Name Role Phone Unavailable Primary Care Provider Unavailabl e Social History Tobacco Use Types Packs/Day Years Used Date Smoking Tobacco: Never Assessed Sex and Gender Information Value Date Recorded Sex Assigned at Not on file Legal Sex Male 1:55 PM EST Gender Identity Not on file Sexual Orientation Not on file Plan of Treatment Health Maintenance Due Date Last Done Comments Hepatitis B Vaccines (1 of 3 - 19+ 3-dose series) 1987 Pneumococcal Vaccine: 50+ Years (1 of 1 - PCV) 2018 Zoster Vaccines (1 of 2) 2018 Cholesterol Screening (Lipid Panel) 12/14/2023 Colorectal Cancer Screening: Colonoscopy 12/14/2023 HIV Screening 12/14/2023 Hepatitis C Screening 12/14/2023 Social Influencers of Health Screening 12/14/2023 Depression Screening 11/15/2024 COVID-19 Vaccine (1 - 2023-2 5 season) 2025 Influenza Vaccine (#1) 2025 7, 09/10/2015, 10/24/2014 DTaP,Tdap,and Td Vaccines (2 - Td or Tdap) 09/10/2025 09/10/2015 HIB Vaccines Aged Out No longer eligi ble based on patient's age to complete this topic HPV Vaccines Aged Out No longer eligi ble based on patient's age to complete this topic Hepatitis A Vaccines Aged Out No long er eligible based on patient's age to complete this topic IPV Vaccines Aged Out No longer eligi ble based on patient's age to complete this topic MMR Vaccines Aged Out No longer eligi ble based on patient's age to complete this topic Meningococcal ACWY Vaccine Aged Out N o longer eligible based on patient's age to complete this topic Meningococcal B Vaccine Aged Out No l onger eligible based on patient's age to complete this topic RSV Immunization Patients Under 20 months Aged Out No longer eligible b ased on patient's age to complete this topic Varicella Vaccines Aged Out No longer eligible based on patient's age to complete this topic
== END 2025-08-13 11:58 | disposition home or self-care (01) ==
LOC: HO.HMCH 10:54
PROVIDERS: PCP Internal Medicine; Visit Provider Internal Medicine
DX: I10 Essential (primary) hypertension (principal); R00.0 Tachycardia, unspecified; R42 Dizziness and giddiness; N52.9 Male erectile dysfunction, unspecified; E55.9 Vitamin D deficiency, unspecified

== ENCOUNTER → 2025-10-09 10:34 | Outpatient (REF) | payer MEDICARE, SELFPAY ==
--- NOTE | 2025-10-09 10:36 | CA_ITS ---
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 The calculated ejection fraction is 60% by biplane method. - No obvious valvular pathology seen on this study. Findings Left Ventricle Normal left ventricular cavity size. There is normal left ventricular wall thickness. The left ventricular systolic function is normal. The calculated ejection fraction is 60% by biplane method. There is no evidence of regional wall motion abnormalities. Diastolic function is normal for age. Right Ventricle Normal right ventricular cavity size and systolic function. Atria Both atria are normal in size. Aortic Valve There is a normal trileaflet aortic valve. There is no aortic valve stenosis. There is no aortic valve regurgitation. Mitral Valve The mitral valve appears normal. There is trace mitral valve regurgitation. There is no mitral valve stenosis. Pulmonic Valve The pulmonic valve is likely normal. Tricuspid Valve There is trace tricuspid valve regurgitation. There is no evidence of pulmonary hypertension. Great Vessels The asc aorta is normal in size. Venous The inferior vena cava is normal in size and collapses greater than 50% with inspiration. Pericardium/Pleural There is no evidence of pericardial effusion. Prior Study Comparison No prior study available for comparison. Recommendations, Care & Conclusions No obvious valvular pathology seen on this study. Measurements 2D Linear Measurements IVSd: 0.89 0.6-0.9/0.6-1.0 cm LVIDd: 5.01 3.9-5.3/4.2-5.9 cm LVIDd Index: 2.56 2.4-3.2/2.2-3.1 cm/m2 LVIDs: 3.25 2.0-3.6 cm LVPWd: 1.05 0.7-1.1 cm LA Diam: 3.30 2.7-3.8/3.0-4.0 cm LAIDs Index: 1.68 1.5-2.3 cm/m2 LV Mass: 217.60 67-162/88-224 g LV Mass Index: 111.02 43-95/49-115 g/m2 LVOT Diam: 2.10 3.0+(-)1.3 cm 2D Systolic Function EF 4C: 60.60 >55% EF 2C: 63.90 >55% EF BiP: 60.40 >55% Mitral Valve MV Pk E: 0.74 MV PK A: 0.57 MV Decel Time: 158.00 E/A: 1.30 E'Lateral: 10.10 E'Medial: 7.07 E/E' Med: 10.50 E/E' Lat: 7.30 PHT: 46.00 MVA PHT: 4.78 Decel [place]: 4.71 Aortic Valve AoV Pk Jeevan: 1.16 AoV Mn Jeevan: 0.75 AoV VTI: 0.24 AoV Pk Grad: 5.00 Aov Mn Grad: 3.00 IKER Cont.VTI: 2.62 LVOT LVOT Pk Jeevan: 0.96 LVOT Mn Jeevan: 0.60 LVOT VTI: 0.18 LVOT Pk Grad: 4.00 LVOT Mn Grad: 2.00 LVOT Diam: 2.10 LVOT Area: 3.46 Diastolic Function MV Pk E: 0.74 MV Pk A: 0.57 E/A: 1.30 E'Medial: 7.07 E/E' Med: 10.50 E' Laterial: 10.10 E/E' Lat: 7.30 Right Ventricle TAPSE (mm): 21.20 TVS' Jeevan: 10.30 Tricuspid Valve TR Pk Jeevan: 2.01 TR Pk Grad: 16.00 RA Press: 3.00 RVSP: 19.00 Great Vessels Aorta Sinus of Valsalva: 3.39 2.0-3.[address] [place]: 2.83 1.7-3.4 cm Ao Asc: 3.20 2.1-3.4 cm Updated in Other Vendor System with Status of Final Nehemias Flower MD electronically signed on 10/09/2025 1:13:00 PM with status of Final
== END ==
LOC: HO.CARD 10:34
PROVIDERS: PCP Internal Medicine; Visit Provider Internal Medicine
DX: R01.1 Cardiac murmur, unspecified (principal); R00.0 Tachycardia, unspecified
CPT/HCPCS: 93225; 93306

== ENCOUNTER → 2025-10-09 10:36 | Outpatient (BNV) | payer MEDICARE, SELFPAY | PROVIDERS: PCP Internal Medicine; Visit Provider Internal Medicine | DX: I49.3 Ventricular premature depolarization (principal); I49.49 Other premature depolarization | CPT/HCPCS: 93227; 93306 ==